=== PATIENT | male | born 1975 | race Caucasian/White ===

== ENCOUNTER 2016-08-27 05:06 | Emergency (ER) | payer MEDICAID ==
[~2016-08-27] VITALS: Ht 175.3 cm; Wt 81.6 kg
[~2016-08-27 05:06] MED LIST: BELLTAB15; METO-281; NOR10T
[2016-08-27 06:08] LABS: Basophils # (auto) 0 uL; Basophils % (auto) 0.6 % (0.0-2.0); DEFINITIVE VIEW TRANSMISSION; Eosinophils # (auto) 0.4 uL; Eosinophils % (auto) 4.9 % (0.0-7.0); Hematocrit 51.7 % (41.0-53.0); Hemoglobin 16.1 g/dL (13.5-17.5); Lymphocytes # (auto) 2.3 uL; Lymphocytes % (auto) 28.1 % (10.0-50.0); Mean Corpuscular Hemoglobin 28.9 pg (28.0-32.0); Mean Corpuscular Hgb Conc. 31.2 g/dL (32.0-36.0); Mean Corpuscular Volume 92.4 fL (80.0-100.0); Mean Platelet Volume 8.2 fL (7.4-10.4); Monocytes # (auto) 0.7 uL; Monocytes % (auto) 8.3 % (0.0-12.0); Neutrophils # (auto) 4.8 uL; Neutrophils % (auto) 58.1 % (37.0-80.0); Platelet Count (auto) 381 10^3/uL (140-450); Red Cell Distribution Width 14.8 % (11.6-16.0); White Blood Cell 8.2 10^3/uL (4.4-10.8)
[2016-08-27 06:38] LABS: Albumin 3.8 g/dL (3.4-5.0); Amylase 84 U/L (25-115); Anion Gap 6 (5-15); Blood Urea Nitrogen 11 mg/dL (7-18); Calcium 8.7 mg/dL (8.5-10.1); Carbon Dioxide 26 mmol/L (21-32); Chloride 109 mmol/L (98-107); Glucose 105 mg/dL (74-106); Magnesium 2.6 mg/dL (1.6-2.6); Potassium 4.2 mmol/L (3.5-5.1); Sodium 141 mmol/L (136-145)
[2016-08-27 06:40] LABS: Aspartate Aminotransferase 15 U/L (15-37); BUN/Creatinine Ratio 8.8; GFR African American 81 mL/min; GFR Non-African American 67 mL/min
[2016-08-27 06:46] LABS: Alkaline Phosphatase 75 U/L (45-117); Bilirubin, Total 0.5 mg/dL (0.2-1.0); Total Protein 7.5 g/dL (6.4-8.2)
[2016-08-27] MEDS ORDERED: ONDANSETRON HCL 4 MG/2 ML VIAL IV ONE (12:15)
[2016-08-27] MEDS ORDERED: HYDROmorphone HCL 2 MG/ML VL IV ONE (12:15)
[2016-08-27] MEDS ORDERED: PANTOPRAZOLE SODIUM 40 MG/10 ML VIAL IV ONE (12:15)
[2016-08-27] MEDS ORDERED: SODIUM CHLORIDE 0.9% 1,000 ML IV ONE (12:15)
[2016-08-27 15:26] VITALS: BP 123/77
== END 2016-08-27 15:44 | disposition home or self-care (01) ==
LOC: ER 05:08
DX: R10.9 Unspecified abdominal pain (principal); F12.10 Cannabis abuse, uncomplicated; K57.90 Diverticulosis of intestine, part unspecified, without perforation or abscess without bleeding; Z88.5 Allergy status to narcotic agent; Z88.6 Allergy status to analgesic agent
CPT/HCPCS: 36415; 74176; 80053; 80320; 82150; 83690; 83735; 84484; 85025; 96374; 96375; 99285; C9113; G0434; J1170; J2405; J7030

== ENCOUNTER 2016-12-03 13:49 | Emergency (ER) | payer MEDICAID ==
[~2016-12-03] VITALS: Ht 175.3 cm; Wt 133.8 kg
[2016-12-03 14:11] VITALS: BP 143/93
[2016-12-03 14:46] LABS: Basophils # (auto) 0 uL; Basophils % (auto) 0.2 % (0.0-2.0); Eosinophils # (auto) 0 uL; Hematocrit 52.5 % (41.0-53.0); Hemoglobin 17.3 g/dL (13.5-17.5); Lymphocytes # (auto) 0.6 uL; Mean Corpuscular Hemoglobin 30.5 pg (28.0-32.0); Mean Corpuscular Hgb Conc. 32.9 g/dL (32.0-36.0); Mean Corpuscular Volume 92.6 fL (80.0-100.0); Mean Platelet Volume 8.9 fL (7.4-10.4); Monocytes # (auto) 0.4 uL; Monocytes % (auto) 3.5 % (0.0-12.0); Neutrophils % (auto) 90.3 % (37.0-80.0); Platelet Count (auto) 341 10^3/uL (140-450); Red Cell Distribution Width 14.7 % (11.6-16.0)
[2016-12-03 15:07] LABS: Albumin 4.2 g/dL (3.4-5.0); BUN/Creatinine Ratio 10.7; Bilirubin, Total 0.6 mg/dL (0.2-1.0); Calcium 8.9 mg/dL (8.5-10.1); Potassium 4.4 mmol/L (3.5-5.1); Total Protein 8.3 g/dL (6.4-8.2)
== END 2016-12-03 20:20 | disposition left against medical advice (07) ==
LOC: EDBD 13:49 → ER 14:12
DX: R10.9 Unspecified abdominal pain (principal); R11.2 Nausea with vomiting, unspecified; Z53.21 Procedure and treatment not carried out due to patient leaving prior to being seen by health care provider
CPT/HCPCS: 36415; 80053; 85025

== ENCOUNTER 2017-04-12 07:09 | Emergency (ER) | payer MEDICAID ==
[~2017-04-12] VITALS: Ht 188 cm; Wt 90.7 kg
[2017-04-12 07:51] VITALS: BP 125/65
[2017-04-12] MEDS ORDERED: SODIUM CHLORIDE 0.9% 1,000 ML IV ONE ×2 (07:58)
[2017-04-12] MEDS ORDERED: KETOROLAC TROMETH 30 MG/ML 1ML VIAL IV ONE (08:00)
[2017-04-12 08:13] LABS: Basophils # (auto) 0.1 uL; Basophils % (auto) 0.6 % (0.0-2.0); Eosinophils # (auto) 0.4 uL; Eosinophils % (auto) 3.1 % (0.0-7.0); Hematocrit 48.7 % (41.0-53.0); Hemoglobin 16.5 g/dL (13.5-17.5); Lymphocytes # (auto) 1.5 uL; Mean Corpuscular Hemoglobin 31.4 pg (28.0-32.0); Mean Corpuscular Hgb Conc. 33.9 g/dL (32.0-36.0); Mean Corpuscular Volume 92.6 fL (80.0-100.0); Mean Platelet Volume 8.2 fL (6.9-10.8); Monocytes # (auto) 0.8 uL; Monocytes % (auto) 7.3 % (0.0-12.0); Neutrophils # (auto) 8.6 uL; Nucleated Red Blood Cells % 0.1 %; Platelet Count (auto) 319 10^3/uL (140-450); Red Cell Distribution Width 14.9 % (11.8-14.3); White Blood Cell 11.3 10^3/uL (4.4-10.8)
[2017-04-12 08:28] LABS: Albumin 4.1 g/dL (3.4-5.0); BUN/Creatinine Ratio 10.6; Bilirubin, Total 0.2 mg/dL (0.2-1.0); Calcium 9.4 mg/dL (8.5-10.1); Potassium 4.4 mmol/L (3.5-5.1); Total Protein 7.5 g/dL (6.4-8.2)
[2017-04-12] MEDS ORDERED: ACETAMINOPHEN 325 MG TAB PO ONE (09:30)
[2017-04-12 09:32] LABS: Urine Bilirubin Negative (Negative); Urine Blood Negative /uL (Negative); Urine Color Yellow (Yellow); Urine Glucose Normal (Normal); Urine Ketone Negative (Negative); Urine Nitrite Negative (Negative); Urine RBC 1 /hpf (0 - 3); Urine Urobilinogen Normal (Negative)
== END 2017-04-12 09:58 | disposition home or self-care (01) ==
LOC: ER 07:09 → EDUNIT# 07:09 → EDBD 07:09 → ER 09:58
DX: R10.32 Left lower quadrant pain (principal); F17.210 Nicotine dependence, cigarettes, uncomplicated; Z91.012 Allergy to eggs; Z88.6 Allergy status to analgesic agent; Z79.899 Other long term (current) drug therapy
CPT/HCPCS: 36415; 74176; 80053; 81001; 85025; 96361; 96374; 99285; J1885; J7030

== ENCOUNTER 2017-08-15 08:16 | Emergency (ER) | payer MEDICAID ==
[~2017-08-15] VITALS: Ht 175.3 cm; Wt 88.5 kg
[~2017-08-15 08:16] MED LIST changes: -BELLTAB15; +PHEN-913
[2017-08-15] MEDS ORDERED: PROMETHAZINE HCL 25 MG/ML 1ML IV PRN (08:45)
[2017-08-15] MEDS ORDERED: KETOROLAC TROMETH 30 MG/ML 1ML VIAL IV ONE (09:00)
[2017-08-15] MEDS ORDERED: SODIUM CHLORIDE 0.9% 1,000 ML IV ONE (09:00)
[2017-08-15 09:04] LABS: Basophils # (auto) 0.1 uL; Basophils % (auto) 0.8 % (0.0-2.0); Eosinophils # (auto) 0.3 uL; Eosinophils % (auto) 2.3 % (0.0-7.0); Hematocrit 52.5 % (41.0-53.0); Hemoglobin 17.5 g/dL (13.5-17.5); Lymphocytes # (auto) 1.5 uL; Lymphocytes % (auto) 11.1 % (10.0-50.0); Mean Corpuscular Hemoglobin 30.8 pg (28.0-32.0); Mean Corpuscular Hgb Conc. 33.3 g/dL (32.0-36.0); Mean Corpuscular Volume 92.7 fL (80.0-100.0); Monocytes % (auto) 7.9 % (0.0-12.0); Neutrophils # (auto) 10.2 uL; Neutrophils % (auto) 77.9 % (37.0-80.0); Nucleated Red Blood Cells % 0.1 %; Platelet Count (auto) 330 10^3/uL (140-450); Red Blood Cells 5.67 10^6/uL (4.5-5.90); Red Cell Distribution Width 14.2 % (11.8-14.3); White Blood Cell 13.1 10^3/uL (4.4-10.8)
[2017-08-15 09:14] LABS: INR 0.86 (0.9-1.15); Partial Thromboplastin Time 25.4 sec (22.64-33.71); Prothrombin Time 9.4 sec (9.37-12.3)
[2017-08-15 09:17] LABS: Amylase 76 U/L (25-115); Lipase 97 U/L (73-393)
[2017-08-15 09:25] LABS: Alanine Aminotransferase 20 U/L (16-61); Albumin 4.3 g/dL (3.4-5.0); Alkaline Phosphatase 86 U/L (45-117); Anion Gap 10 (5-15); Aspartate Aminotransferase 10 U/L (15-37); BUN/Creatinine Ratio 8.7; Bilirubin, Total 0.4 mg/dL (0.2-1.0); Blood Urea Nitrogen 11 mg/dL (7-18); Calcium 9.2 mg/dL (8.5-10.1); Carbon Dioxide 25 mmol/L (21-32); Chloride 107 mmol/L (98-107); GFR African American 80 mL/min; GFR Non-African American 66 mL/min; Glucose 113 mg/dL (74-106); Magnesium 2.9 mg/dL (1.6-2.6); Potassium 4.6 mmol/L (3.5-5.1); Sodium 142 mmol/L (136-145); Total Protein 8.2 g/dL (6.4-8.2)
[2017-08-15] MEDS ORDERED: diphenhdrAMINE HCL 50 MG/1 ML VL IV ONE (09:30)
[2017-08-15] MEDS ORDERED: IOHEXOL 300 MG/ML 100ML BOTTLE IJ ONE (10:11)
[2017-08-15 10:40] LABS: Urine Bacteria NONE SEEN /hpf (None Seen); Urine Blood Negative /uL (Negative); Urine Specific Gravity 1.011 (1.001-1.035); Urine WBC <1 /hpf (0 - 3)
[2017-08-15 11:08] LABS: Alcohol, Urine < 3.0 mg/dL (0-5); Amphetamine Screen, Urine NEGATIVE (NEGATIVE); Barbiturate Scree,Urine NEGATIVE (NEGATIVE); Benzodiazephine Screen, Urine NEGATIVE (NEGATIVE); Cannabinoid Screen, Urine POSITIVE (NEGATIVE); Cocaine Screen, Urine NEGATIVE (NEGATIVE); Opiate Scree,Urine NEGATIVE (NEGATIVE); Phencyclidine Screen, Urine NEGATIVE (NEGATIVE)
[2017-08-15 11:15] VITALS: BP 149/107
[2017-08-15] MEDS ORDERED: traMADol HCL 50 MG TAB PO ONE (11:30)
== END 2017-08-15 11:43 | disposition home or self-care (01) ==
LOC: ER 08:16 → EDBD 08:16 → ER 11:43
DX: R10.13 Epigastric pain (principal); R11.2 Nausea with vomiting, unspecified; R07.9 Chest pain, unspecified; G89.29 Other chronic pain; M54.9 Dorsalgia, unspecified; F17.210 Nicotine dependence, cigarettes, uncomplicated; Z87.442 Personal history of urinary calculi
CPT/HCPCS: 36415; 71045; 74177; 80053; 80307; 81001; 82150; 83690; 83735; 84484; 85025; 85610; 85730; 93005; 96361; 96374; 96375; 99285; J1200; J1885; J2550; J7030; Q9967

== ENCOUNTER 2021-12-27 19:03 | Emergency (ER) | payer MEDICAID ==
[~2021-12-27] VITALS: Ht 175.3 cm; Wt 108.9 kg
[~2021-12-27 19:03] MED LIST changes: +PHEN-839; -PHEN-913
[2021-12-27 19:36] LABS: Basophils # (auto) 0.1 10 ^3/uL (0-0.2); Lymphocytes # (auto) 1.4 10 ^3/uL (0.4-5.4); Monocytes # (auto) 1.1 10 ^3/uL (0-1.3); Red Cell Distribution Width 15.3 % (11.8-14.3)
[2021-12-27 19:38] LABS: Basophils % (auto) 0.4 % (0.0-2.0); Eosinophils # (auto) 0 10 ^3/uL (0-0.8); Eosinophils % (auto) 0.3 % (0.0-7.0); Hematocrit 54.3 % (41.0-53.0); Lymphocytes % (auto) 9.9 % (10.0-50.0); Mean Corpuscular Hemoglobin 30.1 pg (28.0-32.0); Mean Corpuscular Hgb Conc. 33.1 g/dL (32.0-36.0); Mean Corpuscular Volume 90.8 fL (80.0-100.0); Monocytes % (auto) 7.9 % (0.0-12.0); Neutrophils # (auto) 11.4 10 ^3/uL (1.6-8.6); Neutrophils % (auto) 81.5 % (37.0-80.0); Nucleated Red Blood Cells % 0.1 %; Red Blood Cells 5.98 10^6/uL (4.5-5.90)
[2021-12-27 20:10] LABS: BUN/Creatinine Ratio 6.1; Calcium 8.7 mg/dL (8.5-10.1); Potassium 4.2 mmol/L (3.5-5.1)
[2021-12-27 20:13] LABS: Bilirubin, Total 0.4 mg/dL (0.2-1.0); Total Protein 7.5 g/dL (6.4-8.2)
[2021-12-27] MEDS ORDERED: HYDROmorphone HCL 2 MG/ML VL/or syr IV ONE (20:45)
[2021-12-27] MEDS ORDERED: ONDANSETRON HCL 4 MG/2 ML VIAL ONE (20:51)
[2021-12-27] MEDS ORDERED: ONDANSETRON HCL 4 MG/2 ML VIAL IV ONE (21:00)
[2021-12-27] MEDS ORDERED: CEPH-509 PO (21:51)
[2021-12-27] MEDS ORDERED: HYDR-4798 PO (21:51)
[2021-12-27 22:33] VITALS: BP 149/94
== END 2021-12-27 23:30 | disposition home or self-care (01) ==
LOC: EDBD 19:03 → ER 19:03
DX: N20.0 Calculus of kidney (principal); F17.210 Nicotine dependence, cigarettes, uncomplicated; Z90.49 Acquired absence of other specified parts of digestive tract; Z79.899 Other long term (current) drug therapy; Z88.5 Allergy status to narcotic agent; Z88.8 Allergy status to other drugs, medicaments and biological substances; Z91.012 Allergy to eggs
CPT/HCPCS: 36415; 74176; 80053; 85025; 96374; 96375; 99284; J1170; J2405

== ENCOUNTER 2022-01-03 04:42 | Emergency (ER) | payer MEDICAID ==
[~2022-01-03] VITALS: Ht 170.2 cm; Wt 113.4 kg
[~2022-01-03 04:42] MED LIST changes: +CEPH-509 PO; +HYDR-4798 PO
[2022-01-03] MEDS ORDERED: ONDANSETRON HCL 4 MG/2 ML VIAL IV ONE (05:00)
[2022-01-03] MEDS ORDERED: HYDROmorphone HCL 2 MG/ML VL/or syr IM ONE (05:00)
[2022-01-03 06:15] LABS: Urine WBC None Seen /hpf (0 - 3)
[2022-01-03 06:36] LABS: Urine Bacteria NONE SEEN /hpf (None Seen); Urine Blood 1+ /uL (Negative); Urine Mucus FEW (None Seen); Urine Specific Gravity 1.035 (1.001-1.035)
[2022-01-03 08:08] LABS: Basophils # (auto) 0.1 10 ^3/uL (0-0.2); Basophils % (auto) 0.4 % (0.0-2.0); Eosinophils # (auto) 0.1 10 ^3/uL (0-0.8); Eosinophils % (auto) 0.8 % (0.0-7.0); Hematocrit 50.3 % (41.0-53.0); Hemoglobin 16.9 g/dL (13.5-17.5); Lymphocytes # (auto) 1.5 10 ^3/uL (0.4-5.4); Lymphocytes % (auto) 10.4 % (10.0-50.0); Mean Corpuscular Hemoglobin 30.7 pg (28.0-32.0); Mean Corpuscular Hgb Conc. 33.6 g/dL (32.0-36.0); Mean Corpuscular Volume 91.4 fL (80.0-100.0); Monocytes # (auto) 1.4 10 ^3/uL (0-1.3); Monocytes % (auto) 10.2 % (0.0-12.0); Neutrophils # (auto) 11.1 10 ^3/uL (1.6-8.6); Neutrophils % (auto) 78.2 % (37.0-80.0); Red Blood Cells 5.51 10^6/uL (4.5-5.90); Red Cell Distribution Width 15.6 % (11.8-14.3); White Blood Cell 14.2 10^3/uL (4.4-10.8)
[2022-01-03 08:11] LABS: Albumin 3.7 g/dL (3.4-5.0); Calcium 8.6 mg/dL (8.5-10.1); Potassium 3.9 mmol/L (3.5-5.1)
[2022-01-03 08:15] LABS: Bilirubin, Total 0.4 mg/dL (0.2-1.0); Total Protein 7.4 g/dL (6.4-8.2)
[2022-01-03] MEDS ORDERED: METOCLOPRAMIDE HCL 5MG/ml INJ 2ml VIAL IV ONE ×2 (09:15→14:15)
[2022-01-03] MEDS ORDERED: MEPERIDINE HCL (50 MG/ML) 1 ML VIAL IV ONE ×2 (09:15→14:15)
[2022-01-03] MEDS ORDERED: METO-281 PO (13:51)
[2022-01-03] MEDS ORDERED: TAMS0.4C36 PO (13:51)
[2022-01-03] MEDS ORDERED: HYDR-4902 PO (13:51)
[2022-01-03 16:08] VITALS: BP 138/76
== END 2022-01-03 16:10 | disposition home or self-care (01) ==
LOC: ER 04:42 → EDBD 04:42 → ER 16:10
DX: N20.1 Calculus of ureter (principal); F17.200 Nicotine dependence, unspecified, uncomplicated; F12.10 Cannabis abuse, uncomplicated; K21.9 Gastro-esophageal reflux disease without esophagitis; Z90.49 Acquired absence of other specified parts of digestive tract; Z87.442 Personal history of urinary calculi
CPT/HCPCS: 36415; 74176; 80053; 81001; 83690; 85025; 96372; 96374; 96375; 96376; 99284; J1170; J2175; J2405; J2765

== ENCOUNTER 2024-01-20 15:46 | Emergency (ER) | payer MEDICAID ==
[~2024-01-20] VITALS: Ht 172.7 cm; Wt 100.0 kg
[~2024-01-20 15:46] MED LIST changes: +HYDR-4902 PO; +METO-281 PO; +TAMS0.4C36 PO
[2024-01-20] MEDS: SODIUM CHLORIDE 0.9% 1,000 ML IV ONE ×2 (16:48→18:21)
[2024-01-20 16:54] VITALS: BP 122/64; RESP 18; TEMP 98.8; O2SAT 95
[2024-01-20] MEDS: HYDROcodone-ACET 5/325MG TAB PO ONE (17:02)
[2024-01-20 17:16] LABS: Basophils # (auto) 0.1 10 ^3/uL (0-0.2); Basophils % (auto) 0.9 % (0.0-2.0); Eosinophils # (auto) 0.1 10 ^3/uL (0-0.8); Eosinophils % (auto) 0.9 % (0.0-7.0); Hematocrit 48.5 % (41.0-53.0); Hemoglobin 16.6 g/dL (13.5-17.5); Lymphocytes # (auto) 0.8 10 ^3/uL (0.4-5.4); Lymphocytes % (auto) 7.4 % (10.0-50.0); Mean Corpuscular Hemoglobin 31.8 pg (28.0-32.0); Mean Corpuscular Hgb Conc. 34.1 g/dL (32.0-36.0); Mean Corpuscular Volume 93.3 fL (80.0-100.0); Monocytes # (auto) 0.7 10 ^3/uL (0-1.3); Monocytes % (auto) 6.8 % (0.0-12.0); Neutrophils # (auto) 9.1 10 ^3/uL (1.6-8.6); Red Cell Distribution Width 15.3 % (11.8-14.3); White Blood Cell 10.8 10^3/uL (4.4-10.8)
[2024-01-20 17:28] VITALS: PULSE 102
[2024-01-20 17:32] LABS: Alanine Aminotransferase 120 U/L (7-40); Albumin 4.4 g/dL (3.2-4.8); Alkaline Phosphatase 125 U/L (46-116); Anion Gap 9 (5-15); Aspartate Aminotransferase 49 U/L (13-40); BUN/Creatinine Ratio 7.2 (10.0-20.0); Blood Urea Nitrogen 7 mg/dL (9-23); Calcium 10.1 mg/dL (8.7-10.4); Carbon Dioxide 26 mmol/L (20-30); Chloride 104 mmol/L (98-107); Glucose 136 mg/dL (74-106); Lipase 28 U/L (12-53); Potassium 3.2 mmol/L (3.5-5.1); Sodium 139 mmol/L (136-145)
[2024-01-20 17:33] LABS: Bilirubin, Total 0.6 mg/dL (0.2-1.0); Total Protein 7.1 g/dL (5.7-8.2)
[2024-01-20 18:13] LABS: Lactic Acid w/Reflex 2.3 mmol/L (0.4-2.0)
[2024-01-20 19:35] LABS: Urine Bacteria None Seen /hpf (None Seen)
[2024-01-20 19:57] LABS: Urine Blood Negative /uL (Negative); Urine Clarity Clear (Clear); Urine Color Yellow (Yellow); Urine Mucus FEW (None Seen); Urine Protein, UAD TRACE (Negative); Urine Specific Gravity 1.023 (1.001-1.035); Urine Urobilinogen Normal (Negative); Urine WBC 2 /hpf (0 - 3)
[2024-01-20 20:05] LABS: Amphetamine Screen, Urine Neg (NEGATIVE); Barbiturate Scree,Urine Neg (NEGATIVE); Benzodiazephine Screen, Urine Neg (NEGATIVE); Cocaine Screen, Urine Neg (NEGATIVE)
[2024-01-20 20:06] LABS: Cannabinoid Screen, Urine Pos (NEGATIVE); Opiate Scree,Urine Neg (NEGATIVE); Phencyclidine Screen, Urine Neg (NEGATIVE)
[2024-01-20] MEDS ORDERED: METR-344 PO (20:34)
== END 2024-01-20 21:02 | disposition home or self-care (01) ==
LOC: ER 15:46 → EDUNIT# 15:46 → EDBD 15:46 → ER 21:02
DX: R10.84 Generalized abdominal pain (principal); J45.909 Unspecified asthma, uncomplicated; I10 Essential (primary) hypertension; K21.9 Gastro-esophageal reflux disease without esophagitis; F17.200 Nicotine dependence, unspecified, uncomplicated; F12.10 Cannabis abuse, uncomplicated; Z87.442 Personal history of urinary calculi; Z90.49 Acquired absence of other specified parts of digestive tract; Z79.899 Other long term (current) drug therapy
CPT/HCPCS: 36415; 74176; 80053; 80307; 81001; 83605; 83690; 84484; 85025; 93005; 96360; 96361; 99284; J7030

== ENCOUNTER 2024-07-21 02:05 | Inpatient (IN) | payer MEDICAID ==
[~2024-07-21] VITALS: Ht 175.3 cm; Wt 97.4 kg
[~2024-07-21 02:05] MED LIST changes: +METR-344 PO; -TAMS0.4C36 PO; +TAMS0.4C39 PO
--- NOTE | 2024-07-21 04:06 | ED.PDOC ---
General HPI Comments 49-year-old male brought in by private car complaining of right low back and flank pain. Patient has history of hypertension and kidney stones. Patient states he developed right low back pain radiating to the right flank, associated with nausea and vomiting over the past several hours. He denies hematuria or dy suria, but admits to minimal urine output, possibly due to nausea, vomiting and dehydration. Patient denies fever, diarrhea or constipation. He does report cough and congestion. Chief Complaint: Flank Pain Time Seen by MD: 04:06 Primary Care Provider: YAS Reviewed notes: Nurses Notes Allergies: Coded Allergies: Amoxicillin (Verified Allergy, Unknown, 07/21/24) Clavulanic Acid (Verified Allergy, Unknown, 07/21/24) Egg-derived Products (Verified Allergy, Unknown, 03/24/16) UNKNOWN REACTION Ketorolac Tromethamine (Verified Allergy, Unknown, 03/24/16) RASH Morphine (Verified Allergy, Unknown, 03/24/16) VOMITING Home Meds Active Scripts Metronidazole (Flagyl) 500 Mg Tab, 1 TAB PO TID for 7 Days, #21 TAB Prov:RUBINA HERNANDEZ DO 01/20/24 Tamsulosin Hcl (Tamsulosin Hcl) 0.4 Mg Cap, 1 CAP PO BID for 3 Days, #6 CAP 5 Refills Prov:ARABELLA BARBA MD 01/03/22 Metoclopramide Hcl (Reglan) 10 Mg Tab, 10 MG PO BID PRN for 5 Days, #10 TAB Prov:ARABELLA BARBA MD 01/03/22 Hydrocodone-Acetaminophen (Hydrocodone Bitartrate/AC 5-325 mg) 1 Tab Tab, 1 TAB PO TID for 5 Days, #15 TAB Prov:ARABELLA BARBA MD 01/03/22 Cephalexin (KEFLEX 500) 500 Mg Cap, 1 CAP PO TID for 5 Days, #15 CAP Prov:HAYDEN MACKENZIE DO 12/27/21 Hydrocodone-Acetaminophen (Hydrocodone Bitartrate/AC 10-325 mg) 1 Tab Tab, 1 TAB PO Q6HP PRN, #20 TAB Prov:HAYDEN MACKENZIE DO 12/27/21 Reported Medications Metoclopramide Hcl (Reglan) 10 Mg Tab 10/13/10 Hydrocodone-Acetaminophen ([place] 10/325MG) 1 Tab Tb 10/13/10 Belladonna Alkaloids-Phenobarb () Tab 10/13/10 Information Source: Patient Mode of Arrival: EMS Severity: Moderate Inability to void: Mild Timing: Hours Duration: Since onset Has not urinated for: Hours Prehospital treatment: None Onset: Spontaneous Symptoms: Inability to void History of: Kidney stone Location: (R) Flank associated signs and symptoms: Nausea, Vomiting, Flank Pain, Back Pain, Inability to Void Past Medical History PAST MEDICAL HISTORY: GERD, HTN, Kidney Stones Past Medical History (Other): Degenerative disc disease Surgical History: Appendectomy, Cholecystectomy Family History Family History: Reviewed,noncontributory to illness Social History Smoker: Cigar Alcohol: Denies ETOH Use Drugs: Marijuana Lives In: Home Constitutional: denies: chills, diaphoresis, fatigue, fever, malaise, sweats, weakness, others EENTM: denies: blurred vision, double vision, ear bleeding, ear discharge, ear drainage, ear pain, ear ringing, eye pain, eye redness, hearing loss, mouth pain, mouth swelling, nasal discharge, nose bleeding, nose congestion, nose pain, photophobia, tearing, throat pain, throat swelling, voice changes, others Respiratory: denies: cough, hemoptysis, orthopnea, SOB at rest, shortness of breath, SOB with excertion, stridor, wheezing, others Cardiovascular: denies: chest pain, dizzy spells, diaphoresis, Dyspnea on exertion, edema, irregular heart beat, left arm pain, lightheadedness, palpit ations, PND, syncope, others Gastrointestinal: reports: nausea, vomiting; denies: abdomen distended, abdominal pain, blood streaked bowels, constipated, diarrhea, dysphagia, difficulty swallowing, hematemesis, melena, poor appetite, poor fluid intake, rectal bleeding, rectal pain, others Genitourinary: reports: flank pain; denies: burning, dysuria, frequency, hematuria, incontinence, penile discharge, penile sore, pain, testicle pain, testicle swelling, urgency, others Neurological: denies: dizziness, fainting, headache, left sided numbness, left sided weakness, numbness, paresthesia, pre-existing deficit, right sided numbness, right sided weakness, seizure, speech problems, tingling, tremors, weakness, others Musculoskeletal: reports: back pain; denies: gout, joint pain, joint swelling, muscle pain, muscle stiffness, neck pain, others Integumetry: denies: bruises, change in color, change in hair/nails, dryness, laceration, lesions, lumps, rash, wounds, others Allergic/Immunocompromised: denies: Difficulty Healing, Frequent Infections, Hives, Itching, others Hematologic/Lymphatic: denies: anemia, blood clots, easy bleeding, easy bruising, swollen glands, others Endocrine: denies: excessive hunger, excessive sweating, excessive thirst, excessive urination, flushing, intolerance to cold, intolerance to heat, unexplained weight gain, unexplained weight loss, others Psychiatric: denies: anxiety, bipolar disorder, depression, hopeless, panic disorder, schizophrenia, sleepless, suicidal, others Physical Exam General Appearance: Moderate Distress HEENT: Other (Dry mucous membranes) Neck: Full Range of Motion, Normal Inspection Respiratory: Lungs Clear, No Accessory Muscle Use, No Respiratory Distress, Normal Breath Sounds Cardiovascular: No Edema, No JVD, Regular Rate/Rhythm Breast Exam: Deferred Gastrointestinal: Soft, Other (Right lower flank and low back tenderness to palpation) Genitalia: Deferred Pelvic: Deferred Rectal: Deferred Extremities: Normal inspection, Normal range of motion, Non-tender, No pedal edema Neurologic: Alert (Oriented x4), Normal Affect, Normal Mood, Other (Ambulatory without difficulty. No gross focal deficit.) Cerebellar Function: NOT DONE Reflexes: NOT DONE Skin: Dry, Pallor, Warm Lymphatic: NOT DONE Was a procedure done? Was a procedure done?: No Differential Diagnosis Kidney stone (Female): N/A Kidney stone (Male): DJD, Pyelonephritis, Strain, Urinary obstruction, Urolithiasis, Renal infarction, Urinary tract infection Urinary Problem (Male): Bladder Obstruction, Urethritis, Urinary Retention, Urolithiasis, UTI Other Differential Diagnosis Renal failure, viral syndrome, electrolyte imbalance, dehydration, among others X-Ray, Labs, Meds, VS Vital Signs Date Time Temp Pulse Resp B/P (MAP) Pulse Ox O2 Delivery O2 Flow Rate FiO2 07/21/24 06:44 108 18 137/87 (104) 96 07/21/24 06:44 108 18 137/87 07/21/24 05:42 110 18 112/86 07/21/24 05:27 110 18 112/86 (95) 96 07/21/24 05:27 Room Air* 0 21 07/21/24 02:10 99.4 131 20 131/93 (106) 97 Lab Test 07/21/24 05:14 07/21/24 05:04 07/21/24 02:14 Range/Units White Blood Count Pending Red Blood Count Pending Hemoglobin Pending Hematocrit Pending Mean Corpuscular Volume Pending Mean Corpuscular Hemoglobin Pending Mean Corpuscular Hemoglobin Concent Pending Red Cell Distribution Width Pending Platelet Count Pending Mean Platelet Volume Pending Neutrophils (%) (Auto) Pending Lymphocytes (%) (Auto) Pending Monocytes (%) (Auto) Pending Basophils (%) (Auto) Pending Neutrophils # (Auto) Pending Lymphocytes # (Auto) Pending Monocytes # (Auto) Pending Sodium Level Pending Potassium Level Pending Chloride Level Pending Carbon Dioxide Level Pending Anion Gap Pending Blood Urea Nitrogen Pending Creatinine Pending Glomerular Filtration Rate Calc Pending BUN/Creatinine Ratio Pending Serum Glucose Pending Calcium Level Pending Total Bilirubin Pending Aspartate Amino Transferase (AST) Pending Alanine Aminotransferase (ALT) Pending Alkaline Phosphatase Pending Total Protein Pending Albumin Pending Lactic Acid Level 1.5 0.4-2.0 mmol/L Urine Color Yellow Yellow Urine Clarity Clear Clear Urine pH 7.5 5.0-9.0 Urine Specific [place] 1.029 1.001-1.035 Urine Protein 1+ H Negative Urine Ketones 4+ H Negative Urine Blood Negative Negative /uL Urine Nitrite Negative Negative Urine Bilirubin Negative Negative Urine Urobilinogen 3 H Negative mg/dL Urine Leukocyte Esterase Negative Negative /uL Urine RBC 1 0 - 3 /hpf Urine WBC <1 0 - 3 /hpf Urine Squamous Epithelial Cells None seen <5 /hpf Urine Bacteria None seen None Seen /hpf Urine Mucus Few None Seen Urine Glucose Normal Normal mg/dL Current Medications Medications (Trade) Dose Ordered Sig/Jace Route Start Time Stop Time Status Last Admin Sodium Chloride 1,000 ml @ 1,000 mls/hr Q1H ONCE IV 07/21/24 04:15 07/21/24 05:14 DC 07/21/24 05:27 Morphine Sulfate 4 mg ONCE ONCE IV 07/21/24 04:15 07/21/24 04:16 DC 07/21/24 05:42 Ondansetron HCl (Zofran) 4 mg ONCE ONCE IV 07/21/24 04:15 07/21/24 04:16 DC 07/21/24 05:39 Famotidine (Pepcid Injection) 20 mg ONCE ONCE IV 07/21/24 04:15 07/21/24 04:16 DC 07/21/24 05:38 PROCEDURE(s): ABPL - CT AB PEL WO CON-NO ORAL OR IV REASON: R flank pain ORDER NUMBER(s): [id number], ACCESSION NUMBER(s): [id number] Exam: CT CT AB PEL WO CON-NO ORAL OR IV History: R flank pain Comparison Study: None available at time of dictation. Technique: Multidetector spiral CT of the abdomen and pelvis was performed from lung bases to pubic symphysis. Imaging was performed without intravenous contrast. Coronal and sagittal multiplanar reformats were obtained from the axial data set by the technologist. Radiation Dose : 1. Abdomen/Pelvis: CTDIvol 17.9 mGy, DLP 1092.8 mGy*cm. Findings: Evaluation of vasculature and solid organs is limited due to lack of intravenous contrast use. Lung Bases: Lung bases are clear. Visualized portions of the heart and pericardium are unremarkable. Liver: The liver is normal in size. No focal lesions. Gallbladder and Biliary Tree: The gallbladder is surgically absent. No intrahepatic or extrahepatic biliary ductal dilatation. Spleen: Unremarkable Pancreas: The pancreas is grossly unremarkable. Adrenal Glands: Unremarkable Kidneys: 4 mm nonobstructive calculus in the right kidney. Left kidney is unremarkable. No hydronephrosis. GI tract: The stomach is grossly normal in appearance. No evidence of small bowel wall thickening or abnormal dilatation to suggest bowel obstruction. Fatty submucosal deposition throughout the colon. Sigmoid diverticulosis without acute diverticulitis. Surgical material of the base of the cecum suggestive of prior appendectomy. No inflammatory changes in the right lower quadrant. Peritoneum/mesentery/retroperitoneum. No evidence of free intraperitoneal air. No ascites. No evidence of suspicious lymphadenopathy. Abdominal Wall: Unremarkable. Vasculature: The visualized abdominal aorta is normal in size and caliber. Evaluation of abdominal and pelvic vessels is limited due to lack of intravenous contrast. Urinary Bladder: Grossly unremarkable for degree of distention. Pelvic Organs: Unremarkable Musculoskeletal: No aggressive focal bony lesions, acute fractures or dislocatio n. Soft tissues: Fat containing right inguinal hernia. IMPRESSION: 1. No acute abdominal or pelvic findings. 2. Fatty submucosal deposition throughout the colon May suggest chronic inflammation. No findings to suggest acute colitis. 3. Sigmoid diverticulosis without acute diverticulitis. 4. Nonobstructive right intrarenal calculus. 5. Cholecystectomy. X-Ray, Labs, Meds, VS Comment 49-year-old male with a history of hypertension, DDD, kidney stones complaining of lower back and right flank pain, nausea and vomiting Vitals remarkable for heart rate 131, BP 131/93 Exam remarkable for right lower flank and low back tenderness to palpation Rhythm strip independently interpreted by me: Sinus tach, rate 122, no ectopy. CT abdomen and pelvis: IMPRESSION: 1. No acute abdominal or pelvic findings. 2. Fatty submucosal deposition throughout the colon May suggest chronic inflammation. No findings to suggest acute colitis. 3. Sigmoid diverticulosis without acute diverticulitis. 4. Nonobstructive right intrarenal calculus. 5. Cholecystectomy. CBC remarkable for WBC 11, hemoglobin 18.2, hematocrit 53.6, CMP pending UA unremarkable Influenza and COVID pending Patient treated with the following in the ED: 2 L 0.9 normal saline IV bolus, morphine 4 mg IV, Zofran 4 mg IV, Pepcid 20 mg IV. On re-evaluation, patient states pain has somewhat improved, he is not vomiting, but still have some nausea. Plan is to admit the patient for IV hydration, pain and emesis control. Time of 1ST Reevaluation: 03:59 Reevaluation 1ST: Unchanged Patient Education/Counseling: Diagnosis, Treatment Family Education/Counseling: No Family Present Departure 1 Departure Time of Disposition: 06:50 Impression: Primary Impression: Intractable abdominal pain Additional Impressions: Nausea and vomiting Qualified Codes: R11.2 - Nausea with vomiting, unspecified Dehydration Disposition: ADMITTED INPATIENT Admit to: Med Surg Condition: Fair Critical Care Note Critical Care Time?: No Stability Stability form required: No Heart Score Heart Score: Heart Score Response (Comments) Value History N/A 0 EKG N/A 0 Age N/A 0 Risk Factors N/A 0 Troponin N/A 0 Total 0 I personally scribed for JUICE WALTON MD ([facility]) on 07/21/24 at 04 :06. Electronically submitted by Vitaliy Morton ([facility]). I personally scribed for JUICE WALTON MD ([email or web address]) on 07/21/24 at 05:30. Electronically submitted by Vitaliy Morton ([facility]). JUICE WALTON MD Jul 21, 2024 04:06
[2024-07-21 04:17] LABS: Urine Bacteria None Seen /hpf (None Seen)
[2024-07-21 04:44] LABS: Urine Blood Negative /uL (Negative); Urine Clarity Clear (Clear); Urine Color Yellow (Yellow); Urine Mucus FEW (None Seen); Urine Protein, UAD 1+ (Negative); Urine Specific Gravity 1.029 (1.001-1.035); Urine Squamous Epithelial Cell None Seen /hpf (<5); Urine Urobilinogen 3 mg/dL (Negative); Urine WBC <1 /hpf (0 - 3); Urine pH 7.5 (5.0-9.0)
--- NOTE | 2024-07-21 05:11 | DVH ---
Exam: CT CT AB PEL WO CON-NO ORAL OR IV History: R flank pain Comparison Study: None available at time of dictation. Technique: Multidetector spiral CT of the abdomen and pelvis was performed from lung bases to pubic s ymphysis. Imaging was performed without intravenous contrast. Coronal and sagittal multiplanar refor mats were obtained from the axial data set by the technologist. Radiation Dose : 1. Abdomen/Pelvis: CTDIvol 17.9 mGy, DLP 1092.8 mGy*cm. Findings: Evaluation of vasculature and solid organs is limited due to lack of intravenous contrast use. Lung Bases: Lung bases are clear. Visualized portions of the heart and pericardium are unremarkable. Liver: The liver is normal in size. No focal lesions. Gallbladder and Biliary Tree: The gallbladder is surgically absent. No intrahepatic or extrahepatic biliary ductal dilatation. Spleen: Unremarkable Pancreas: The pancreas is grossly unremarkable. Adrenal Glands: Unremarkable Kidneys: 4 mm nonobstructive calculus in the right kidney. Left kidney is unremarkable. No hydroneph rosis. GI tract: The stomach is grossly normal in appearance. No evidence of small bowel wall thickening or abnormal dilatation to suggest bowel obstruction. Fatty submucosal deposition throughout the colon. Sigmoid diverticulosis without acute diverticulitis. Surgical material of the base of the cecum sugge stive of prior appendectomy. No inflammatory changes in the right lower quadrant. Peritoneum/mesentery/retroperitoneum. No evidence of free intraperitoneal air. No ascites. No evidenc e of suspicious lymphadenopathy. Abdominal Wall: Unremarkable. Vasculature: The visualized abdominal aorta is normal in size and caliber. Evaluation of abdominal a nd pelvic vessels is limited due to lack of intravenous contrast. Urinary Bladder: Grossly unremarkable for degree of distention. Pelvic Organs: Unremarkable Musculoskeletal: No aggressive focal bony lesions, acute fractures or dislocation. Soft tissues: Fat containing right inguinal hernia. IMPRESSION: 1. No acute abdominal or pelvic findings. 2. Fatty submucosal deposition throughout the colon May suggest chronic inflammation. No findings to suggest acute colitis. 3. Sigmoid diverticulosis without acute diverticulitis. 4. Nonobstructive right intrarenal calculus. 5. Cholecystectomy.
[2024-07-21] MEDS: SODIUM CHLORIDE 0.9% 1,000 ML IV ONE (05:27)
[2024-07-21] MEDS: KETOROLAC TROMETH 30 MG/ML 1ML VIAL IV ONE (05:34)
[2024-07-21] MEDS: FAMOTIDINE (10MG/ML) 2ML VL IV ONE (05:38)
[2024-07-21] MEDS: ONDANSETRON HCL 4 MG/2 ML VIAL IV ONE (05:39)
[2024-07-21] MEDS: MORPHINE SULFATE 4 MG/ML SYR/VIAL IV ONE (05:42)
[2024-07-21 06:37] LABS: Eosinophils # (auto) 0 10 ^3/uL (0-0.8); Hemoglobin 18.2 g/dL (13.5-17.5); Lymphocytes # (auto) 0.4 10 ^3/uL (0.4-5.4); Nucleated Red Blood Cells % 0.2 %
[2024-07-21 06:39] LABS: Basophils # (auto) 0.1 10 ^3/uL (0-0.2); Basophils % (auto) 0.6 % (0.0-2.0); Eosinophils % (auto) 0.2 % (0.0-7.0); Hematocrit 53.6 % (41.0-53.0); Lymphocytes % (auto) 3.9 % (10.0-50.0); Mean Corpuscular Hemoglobin 30.2 pg (28.0-32.0); Mean Corpuscular Hgb Conc. 33.9 g/dL (32.0-36.0); Mean Corpuscular Volume 89.1 fL (80.0-100.0); Monocytes # (auto) 1.5 10 ^3/uL (0-1.3); Neutrophils % (auto) 81.3 % (37.0-80.0); Platelet Count (auto) 354 10^3/uL (140-450); Red Blood Cells 6.01 10^6/uL (4.5-5.90); Red Cell Distribution Width 15.3 % (11.8-14.3)
[2024-07-21 06:45] LABS: Alanine Aminotransferase 13 U/L (7-40); Alkaline Phosphatase 85 U/L (46-116); Anion Gap 9 (5-15); Aspartate Aminotransferase 15 U/L (13-40); BUN/Creatinine Ratio 5.5 (10.0-20.0); Carbon Dioxide 25 mmol/L (20-31); Chloride 105 mmol/L (98-107); Sodium 139 mmol/L (136-145)
[2024-07-21 06:46] LABS: Bilirubin, Total 0.5 mg/dL (0.2-1.0)
[2024-07-21 06:54] LABS: Albumin 5.3 g/dL (3.2-4.8); Blood Urea Nitrogen 6 mg/dL (9-23); Calcium 10.5 mg/dL (8.7-10.4); Glucose 117 mg/dL (74-106); Total Protein 8.3 g/dL (5.7-8.2)
[2024-07-21 08:57] LABS: Rapid Influenza A Negative (Negative); Rapid Influenza B Negative (Negative)
[2024-07-21 09:02] LABS: COVID19 ANTIGEN SOFIA FIA NEGATIVE (NEGATIVE)
[2024-07-21] MEDS ORDERED: HYDROcodone-ACET 5/325MG TAB PO PRN (11:30)
[2024-07-21] MEDS ORDERED: VANCOMYCIN PER PHARMACY 0 MG IV SCH (11:30)
--- NOTE | 2024-07-21 11:42 | DVHHP2 ---
History of Present Illness Reason for Visit: Flank pain History of Present Illness Christopher Peck is a 49-year-old male with past medical history of hypertension, IBS, diverticulitis, kidney stones, GERD, degenerative disc disease, cholecystectomy, and appendectomy who presents to the ED for right flank pain, low back pain, nausea, diarrhea, cough and congestion x2 days. Patient reports that it started yesterday around 6:30 a.m. he tried to go to [facility] get some rest with no relief. Patient states that the right flank pain is sharp, constant, 10/10 and pain. Patient reports that he also took [place] with no relief. Patient states that movement makes it worse. Patient also states that there was no blood in his stool. Patient reports that he is able to take morphine for pain but just needs to be pushed slow because of the nausea it gives him. Patient reports that he smokes cigars, cigarettes, and uses marijuana but does not drink. Patient denies any recent sick contacts, recent travels, and recent ingestion of spoiled food. Patient denies chest pain, shortness of breath, abdominal pain, vomiting, lightheadedness, dizziness, and headaches. Patient also reports that he is compliant with all his medications. Cardiovascular: HTN GI: GERD, Irritable bowel disease Past Medical History Diverticulitis Kidney stones Degenerative disc disease Past Surgical History: Appendectomy, Cholecystectomy Family History: None Smoke: <1 pack per day ALCOHOL: none Drugs: Marijuana Lives: with Family Domestic Violence: Neg Review of Systems Constitutional: No: Fever, Chills, Sweats, Weakness, Malaise, Other Eyes: No: Pain, Vision change, Conjunctivae inflammation, Eyelid inflammation, Other, Redness ENT: No: Ear pain, Ear discharge, Nose pain, Nose discharge, Nose congestion, Mouth pain, Mouth swelling, Throat pain, Throat swelling, Other Respiratory: Cough, Other (Congestion); No: Dry, Shortness of breath, SOB with excertion, Wheezing, Hemoptysis, Pleuritic Pain, Sputum, Wheezing Cardiovascular: No: Chest Pain, Palpitations, Orthopnea, Paroxysmal Noc. Dyspnea, Edema, Lt Headedness, Other Gastrointestinal: Nausea, Diarrhea, Other (Flank pain); No: Vomiting, Abdominal Pain, Constipation, Melena, Hematochezia Genitourinary: No Dysuria, No Frequency, No Incontinence, No Hematuria, No Rete ntion, No Other Musculoskeletal: back pain; No: other, neck pain, shoulder pain, arm pain, hand pain, leg pain, foot pain Skin: No: Rash, Lesions, Jaundice, Bruising, Other Neurological: No: Weakness, Numbness, Incoordination, Change in speech, Confusion, Seizures, Other Allergies: Coded Allergies: Amoxicillin (Verified Allergy, Unknown, 07/21/24) Clavulanic Acid (Verified Allergy, Unknown, 07/21/24) Egg-derived Products (Verified Allergy, Unknown, 07/22/24) UNKNOWN REACTION Ketorolac Tromethamine (Verified Allergy, Unknown, 03/24/16) RASH Exam Vital Signs Vital Signs Date Time Temp Pulse Resp B/P (MAP) Pulse Ox O2 Delivery O2 Flow Rate FiO2 07/21/24 10:54 119 19 95 Room Air 07/21/24 10:54 98.8 126/84 (98) 98.8 07/21/24 05:27 0 21 General Appearance: Alert, Oriented X3, Cooperative, No acute distress HEENT: Atraumatic, PERRLA, EOMI, Mucous membr. moist/pink Respiratory: Clear to auscultation, Normal air movement Cardiovascular: Regular rate, Normal S1, Normal S2, No murmurs Abdominal: Soft, No hepatospenomegaly, No masses Extremities: No clubbing, No cyanosis, No edema, Normal pulses, No tenderness/swelling Skin: No rashes, No breakdown, No significant lesion Neuro: Normal gait, Normal speech, Strength at 5/5 X4 ext, Normal tone Psych/Mental Status: Mental status NL, Mood NL Labs/Xrays Labs Test 07/21/24 08:00 07/21/24 05:14 07/21/24 05:04 07/21/24 02:14 Range/Units Influenza Type A Antigen Negative Negative Influenza Type B Antigen Negative Negative SARS-CoV-2 Antigen (Rapid) Negative NEGATIVE White Blood Count 11.0 H 4.4-10.8 10^3/uL Red Blood Count 6.01 H 4.5-5.90 10^6/uL Hemoglobin 18.2 H 13.5-17.5 g/dL Hematocrit 53.6 H 41.0-53.0 % Mean Corpuscular Volume 89.1 80.0-100.0 fL Mean Corpuscular Hemoglobin 30.2 28.0-32.0 pg Mean Corpuscular Hemoglobin Concent 33.9 32.0-36.0 g/dL Red Cell Distribution Width 15.3 H 11.8-14.3 % Platelet Count 354 140-450 10^3/uL Mean Platelet Volume 9.0 6.9-10.8 fL Neutrophils (%) (Auto) 81.3 H 37.0-80.0 % Lymphocytes (%) (Auto) 3.9 L 10.0-50.0 % Monocytes (%) (Auto) 14.0 H 0.0-12.0 % Eosinophils (%) (Auto) 0.2 0.0-7.0 % Basophils (%) (Auto) 0.6 0.0-2.0 % Neutrophils # (Auto) 9.0 H 1.6-8.6 10 ^3/uL Lymphocytes # (Auto) 0.4 0.4-5.4 10 ^3/uL Monocytes # (Auto) 1.5 H 0-1.3 10 ^3/uL Eosinophils # (Auto) 0 0-0.8 10 ^3/uL Basophils # (Auto) 0.1 0-0.2 10 ^3/uL Nucleated Red Blood Cells 0.2 % Sodium Level 139 136-145 mmol/L Potassium Level 4.0 3.5-5.1 mmol/L Chloride Level 105 98-107 mmol/L Carbon Dioxide Level 25 20-31 mmol/L Anion Gap 9 5-15 Blood Urea Nitrogen 6 L 9-23 mg/dL Creatinine 1.09 0.700-1.30 mg/dL Glomerular Filtration Rate Calc 83 >90 mL/min BUN/Creatinine Ratio 5.5 L 10.0-20.0 Serum Glucose 117 H 74-106 mg/dL Calcium Level 10.5 H 8.7-10.4 mg/dL Total Bilirubin 0.5 0.2-1.0 mg/dL Aspartate Amino Transferase (AST) 15 13-40 U/L Alanine Aminotransferase (ALT) 13 7-40 U/L Alkaline Phosphatase 85 46-116 U/L Total Protein 8.3 H 5.7-8.2 g/dL Albumin 5.3 H 3.2-4.8 g/dL Lactic Acid Level 1.5 0.4-2.0 mmol/L Urine Color Yellow Yellow Urine Clarity Clear Clear Urine pH 7.5 5.0-9.0 Urine Specific [place] 1.029 1.001-1.035 Urine Protein 1+ H Negative Urine Ketones 4+ H Negative Urine Blood Negative Negative /uL Urine Nitrite Negative Negative Urine Bilirubin Negative Negative Urine Urobilinogen 3 H Negative mg/dL Urine Leukocyte Esterase Negative Negative /uL Urine RBC 1 0 - 3 /hpf Urine WBC <1 0 - 3 /hpf Urine Squamous Epithelial Cells None seen <5 /hpf Urine Bacteria None seen None Seen /hpf Urine Mucus Few None Seen Urine Glucose Normal Normal mg/dL Exam: CT CT AB PEL WO CON-NO ORAL OR IV History: R flank pain Comparison Study: None available at time of dictation. Technique: Multidetector spiral CT of the abdomen and pelvis was performed from lung bases to pubic symphysis. Imaging was performed without intravenous contrast. Coronal and sagittal multiplanar reformats were obtained from the axial data set by the technologist. Radiation Dose : 1. Abdomen/Pelvis: CTDIvol 17.9 mGy, DLP 1092.8 mGy*cm. Findings: Evaluation of vasculature and solid organs is limited due to lack of intravenous contrast use. Lung Bases: Lung bases are clear. Visualized portions of the heart and pericardium are unremarkable. Liver: The liver is normal in size. No focal lesions. Gallbladder and Biliary Tree: The gallbladder is surgically absent. No intrahepatic or extrahepatic biliary ductal dilatation. Spleen: Unremarkable Pancreas: The pancreas is grossly unremarkable. Adrenal Glands: Unremarkable Kidneys: 4 mm nonobstructive calculus in the right kidney. Left kidney is unremarkable. No hydronephrosis. GI tract: The stomach is grossly normal in appearance. No evidence of small bowel wall thickening or abnormal dilatation to suggest bowel obstruction. Fatty submucosal deposition throughout the colon. Sigmoid diverticulosis without acute diverticulitis. Surgical material of the base of the cecum suggestive of prior appendectomy. No inflammatory changes in the right lower quadrant. Peritoneum/mesentery/retroperitoneum. No evidence of free intraperitoneal air. No ascites. No evidence of suspicious lymphadenopathy. Abdominal Wall: Unremarkable. Vasculature: The visualized abdominal aorta is normal in size and caliber. Evaluation of abdominal and pelvic vessels is limited due to lack of intravenous contrast. Urinary Bladder: Grossly unremarkable for degree of distention. Pelvic Organs: Unremarkable Musculoskeletal: No aggressive focal bony lesions, acute fractures or dislocation. Soft tissues: Fat containing right inguinal hernia. IMPRESSION: 1. No acute abdominal or pelvic findings. 2. Fatty submucosal deposition throughout the colon May suggest chronic inflammation. No findings to suggest acute colitis. 3. Sigmoid diverticulosis without acute diverticulitis. 4. Nonobstructive right intrarenal calculus. 5. Cholecystectomy. Assessment/Plan Assessment/Plan Assessment/Plan: Intractable flank pain Leukocytosis Fatty submucosal deposition throughout the colon May suggest chronic inflammation. No findings to suggest acute colitis Sigmoid diverticulosis without acute diverticulitis Ketonuria Proteinuria COVID test negative Flu test negative Pepcid given ER Antiemetics Pain management NS given ER Lactic acid and negative Blood cultures UA CT abdomen and pelvis noted IV antibiotics - vancomycin and meropenem, patient allergic to penicillins Labs A.m. labs Chronic hypertension Continue home medications Chronic IBS History of diverticulitis History of kidney stones History of GERD Continue home medications Follow up outpatient with PCP History of degenerative disc disease Follow up outpatient with PCP Nonobstructive right intrarenal calculus. Follow up outpatient with PCP FEN/PPX diet hl DVT prophylaxis not indicated patient ambulating PUD prophylaxis -Protonix Admit to med surg Home medications reconciled Discussed plan of care with patient, and nurse Plan discussed with: Patient My Orders Orders - ANDRES SAMUEL Procedure Category Date Status Time Admit ADMIT 07/21/24 Transmitted 11:30 Allergies IRINA 07/21/24 Transmitted 11:30 Code Status CODE 07/21/24 Transmitted 11:30 2 Gm Sodium Diet DIET 07/21/24 Transmitted Lunch Hydrocodone-Acet PHA 07/21/24 Transmitted 5/325mg Tab (Cleves 11:30 Ondansetron Hcl PHA 07/21/24 Transmitted (Zofran) 11:30 Complete Blood Count LAB 07/22/24 Verified 04:00 Comprehensive LAB 07/22/24 Verified Metabolic Panel 04:00 Acetaminophen Tablet PHA 07/21/24 Transmitted (Tylenol Tablet) 11:30 Morphine Sulfate PHA 07/21/24 Transmitted Injection 11:30 Vancomycin Per PHA 07/21/24 Transmitted Pharmacy 11:30 Meropenem 1gm Ivpb X PHA 07/21/24 Transmitted ONE 11:30 Meropenem 1gm PHA 07/21/24 Transmitted Q8h(Gfr>50) 14:00 Date of Service: Jul 21, 2024 Billing Provider: ANDRES SAMUEL Common Visit Codes: 36239-[id number] INP/OBS CARE (HIGH) ANDRES SAMUEL [facility] Jul 21, 2024 11:42
[2024-07-21 11:52] VITALS: BP 128/70; PULSE 111; RESP 18; TEMP 99.9; O2SAT 92
[2024-07-21] MEDS: MEROPENEM 1GM IVPB 50 ML IV ONE (12:10)
[2024-07-21] MEDS: MORPHINE SULFATE INJ 2 MG/ml SYRG IV PRN (12:11)
[2024-07-21] MEDS: VANCOMYCIN 1GM/250ML KIT 250 ML IV SCH (12:15)
[2024-07-21] MEDS ORDERED: CYCL1POW25 XX (12:35)
[2024-07-21] MEDS ORDERED: HYDR12.59 PO (13:26)
[2024-07-21] MEDS ORDERED: LOSA-534 PO (13:27)
[2024-07-21] MEDS ORDERED: CYCL-839 PO (13:28)
[2024-07-21 17:00] VITALS: BP 126/78; PULSE 111; RESP 20; TEMP 100.5; O2SAT 95
[2024-07-21] MEDS: MEROPENEM 1GM IVPB 50 ML IV SCH (17:44)
[2024-07-21] MEDS: ACETAMINOPHEN 325 MG TAB PO PRN (17:49)
[2024-07-21] MEDS: VANCOMYCIN 750MG VIAL 750 MG in D5W 5% 100 ML IV SCH (17:50)
[2024-07-21 20:00] VITALS: PULSE 104; RESP 18; O2SAT 92
[2024-07-21 21:00] VITALS: BP 130/72; PULSE 104; RESP 16; TEMP 99; O2SAT 90
[2024-07-22] VITALS (7 sets, daily range): BP systolic 106–134; BP diastolic 66–85; PULSE 95–107; RESP 16–18; TEMP 98.1–100.1; O2SAT 90–96
[2024-07-22 08:38] LABS: Basophils # (auto) 0.1 10 ^3/uL (0-0.2); Basophils % (auto) 0.9 % (0.0-2.0); Eosinophils # (auto) 0 10 ^3/uL (0-0.8); Eosinophils % (auto) 0.2 % (0.0-7.0); Hematocrit 50.8 % (41.0-53.0); Hemoglobin 16.9 g/dL (13.5-17.5); Lymphocytes # (auto) 0.9 10 ^3/uL (0.4-5.4); Mean Corpuscular Hemoglobin 30.3 pg (28.0-32.0); Mean Corpuscular Hgb Conc. 33.3 g/dL (32.0-36.0); Mean Corpuscular Volume 90.8 fL (80.0-100.0); Monocytes # (auto) 1.4 10 ^3/uL (0-1.3); Monocytes % (auto) 16.1 % (0.0-12.0); Neutrophils # (auto) 6.2 10 ^3/uL (1.6-8.6); Neutrophils % (auto) 72.8 % (37.0-80.0); Nucleated Red Blood Cells % 0.2 %; Platelet Count (auto) 274 10^3/uL (140-450); Red Cell Distribution Width 15.5 % (11.8-14.3); White Blood Cell 8.6 10^3/uL (4.4-10.8)
[2024-07-22] MEDS: ONDANSETRON HCL 4 MG/2 ML VIAL IV PRN (09:57)
[2024-07-22 10:26] LABS: Albumin 4.3 g/dL (3.2-4.8); Anion Gap 5 (5-15); BUN/Creatinine Ratio 6.7 (10.0-20.0); Calcium 9.1 mg/dL (8.7-10.4); Carbon Dioxide 25 mmol/L (20-31); Chloride 106 mmol/L (98-107); Glucose 87 mg/dL (74-106); Potassium 4.2 mmol/L (3.5-5.1); Sodium 136 mmol/L (136-145); Total Protein 6.9 g/dL (5.7-8.2)
[2024-07-22 10:28] LABS: Alanine Aminotransferase 114 U/L (7-40); Alkaline Phosphatase 143 U/L (46-116); Aspartate Aminotransferase 138 U/L (13-40); Bilirubin, Total 0.3 mg/dL (0.2-1.0); Blood Urea Nitrogen 6 mg/dL (9-23)
[2024-07-22] MEDS ORDERED: CYCLOBENZAPRINE HCL 10 MG TAB PO PRN (16:15)
--- NOTE | 2024-07-22 16:31 | DVH ---
Procedure: US LIVER 07/22/2024 04:06 PM Indication: elevated LFTs Comparison: None Technique: Grayscale and color images of the right upper quadrant were obtained. FINDINGS: ASCITES: None. LIVER: Liver measures 17.1 cm in craniocaudal. Liver parenchyma is homogeneous in echotexture. No foc al lesion is identified. No intrahepatic ductal dilatation. Normal directional flow is seen in the p ortal vein. GALLBLADDER: Gallbladder is surgically absent. COMMON BILE DUCT: 0.4 cm in caliber. PANCREAS: Visualized portions are unremarkable. RIGHT KIDNEY: Normal in size , 10.6 cm in length without hydronephrosis. No focal lesions identified. AORTA, IVC: Visualized portions are unremarkable. OTHER: None. IMPRESSION: 1. No sonographic evidence for acute abnormality in the right upper quadrant.
--- NOTE | 2024-07-22 16:43 | DVHPN2 ---
Progress Note - Dictate Date Seen: Jul 22, 2024 Medical Necessity Reason Pt with a Central, PICC or Fol: No Subjective Patient's chart is reviewed seen and evaluated by me today. Admitted here with abdominal pain however at present he denies any. He is tolerating diet. Patient's sees outpatient pain management. vital signs Vital Sign Date Time Temp Pulse Resp B/P (MAP) Pulse Ox O2 Delivery O2 Flow Rate FiO2 07/22/24 15:18 100 17 111/76 07/22/24 13:00 98.1 96 98.1 07/22/24 08:30 Room Air* 0 21 Total Intake and Output 07/21/24 07/21/24 07/22/24 15:00 23:00 07:00 Intake Total 300 ml 1150 ml 400 ml Balance 300 ml 1150 ml 400 ml medications Current Medications Medications Dose Ordered Sig/Jace Route Start Time Stop Time Status Last Admin Dose Admin Acetaminophen/ Hydrocodone Bitart 1 tab Q4HP PRN PO 07/21/24 11:30 Ondansetron HCl 4 mg Q4HP PRN IV 07/21/24 11:30 07/22/24 09:57 4 MG Acetaminophen 650 mg Q6HP PRN PO 07/21/24 11:30 07/22/24 06:23 650 MG Morphine Sulfate 2 mg Q4HPRN PRN IV 07/21/24 11:30 07/22/24 15:18 2 MG Vancomycin HCl 0 ml @ 0 mls/hr UD IV 07/21/24 11:30 Meropenem 50 ml @ 17 mls/hr Q8H IV 07/21/24 18:00 07/22/24 12:41 17 MLS/HR Vancomycin HCl 100 ml @ 100 mls/hr Q12H IV 07/22/24 22:00 Cyclobenzaprine HCl 10 mg Q8HPRN PRN PO 07/22/24 16:15 objective Alert awake oriented x3. HEENT neck supple no JVD. Heart regular rate and rhythm S1-S2. Lungs fair air movement without rales wheezes. Abdomen obese soft nontender nondistended positive bowel sounds. Extremities no edema positive pulses. laboratory and microbiology Laboratory Tests 07/22/24 07:04 Test 07/22/24 07:04 Range/Units Serum Glucose 87 74-106 mg/dL Assessment/Plan His LFTs are mildly elevated today. Yesterday they were normal. We will DC Elton and Tylenol. I will check a hepatitis panel. Continue his diet. Add Flexeril which he takes at home for his chronic pain. Otherwise continue rest of supportive care and treatment. Ultrasound of the liver is ordered as well. Further clinical management per clinical course. Discussed with the patient's nurse regarding care plan at bedside. Problems(with codes): (1) IBS (irritable bowel syndrome) (2) Chronic back pain greater than 3 months duration (3) Nonspecific abdominal pain (4) Kidney stone Plan discussed with: Patient, Other Date of Service: Jul 22, 2024 Billing Provider: KAHLIL MCCLURE MD Common Visit Codes: [id number] INP/OBS CARE(MOD) KAHLIL MCCLURE MD Jul 22, 2024 16:43
[2024-07-22] MEDS: CYCLOBENZAPRINE HCL 10 MG TAB PO ONE (17:08)
[2024-07-22] MEDS ORDERED: VANCOMYCIN 750MG KIT 100 ML IV SCH (22:00)
[2024-07-23] VITALS (8 sets, daily range): BP systolic 105–136; BP diastolic 71–104; PULSE 89–117; RESP 16–20; TEMP 98.9–99.7; O2SAT 91–93
[2024-07-23 07:18] LABS: Basophils # (auto) 0 10 ^3/uL (0-0.2); Basophils % (auto) 0.5 % (0.0-2.0); Eosinophils # (auto) 0 10 ^3/uL (0-0.8); Eosinophils % (auto) 0.1 % (0.0-7.0); Hematocrit 51.2 % (41.0-53.0); Hemoglobin 17.2 g/dL (13.5-17.5); Lymphocytes # (auto) 1.1 10 ^3/uL (0.4-5.4); Lymphocytes % (auto) 18.2 % (10.0-50.0); Mean Corpuscular Hemoglobin 29.8 pg (28.0-32.0); Mean Corpuscular Hgb Conc. 33.5 g/dL (32.0-36.0); Mean Corpuscular Volume 88.8 fL (80.0-100.0); Monocytes # (auto) 0.9 10 ^3/uL (0-1.3); Monocytes % (auto) 14.7 % (0.0-12.0); Neutrophils # (auto) 4.2 10 ^3/uL (1.6-8.6); Neutrophils % (auto) 66.5 % (37.0-80.0); Nucleated Red Blood Cells % 0.1 %; Platelet Count (auto) 251 10^3/uL (140-450); Red Blood Cells 5.76 10^6/uL (4.5-5.90); Red Cell Distribution Width 15.3 % (11.8-14.3); White Blood Cell 6.3 10^3/uL (4.4-10.8)
[2024-07-23 07:36] LABS: Anion Gap 8 (5-15); Bilirubin, Total 0.3 mg/dL (0.2-1.0); Calcium 9.2 mg/dL (8.7-10.4); Carbon Dioxide 27 mmol/L (20-31); Chloride 104 mmol/L (98-107); Glucose 94 mg/dL (74-106); Sodium 139 mmol/L (136-145); Total Protein 6.6 g/dL (5.7-8.2)
[2024-07-23 07:46] LABS: Alanine Aminotransferase 185 U/L (7-40); Alkaline Phosphatase 204 U/L (46-116); Aspartate Aminotransferase 233 U/L (13-40); Potassium 3.5 mmol/L (3.5-5.1)
[2024-07-23 07:50] LABS: BUN/Creatinine Ratio 7.1 (10.0-20.0)
[2024-07-23 07:53] LABS: Blood Urea Nitrogen 6 mg/dL (9-23)
--- NOTE | 2024-07-23 13:59 | DVHINCON2 ---
Date of service: Jul 23, [address] Mejia Reason for Consultation Abdominal pain in the right upper quadrant as well as right flank History of Present Illness This 49-year-old male with a history of hypertension GERD degenerative joint disease in the back presented with complaints of abdominal pain in the right upper quadrant as well as right flank as well as low back pain with associated nausea some diarrhea. The pain was very severe and hence he came to the emergency room and from there admitted A CT scan which was done showed there was evidence of possible small kidney stone in the right kidney patient has no hematuria and the urinalysis showed no blood Patient has status post cholecystectomy He denies any drinking but she uses marijuana and smokes cigarettes. He takes chronically [place] and muscle relaxants at home for his back pain in addition to marijuana His liver enzymes were normal outpatient but in the last to 48 hours it is still slowly gone up bilirubin is normal but other enzymes are all high Hepatitis panel is pending Because of this the reason for the GI Past Medical History Hypertension GERD possible IBS kidney stone Past Surgical History Gallbladder surgery and appendectomy Had colonoscopy and endoscopy about more than 20 years Family History: Family history: Cardiovascular disease G8 MOTHER Family history: Diabetes mellitus G8 MOTHER Family History Noncontributory Social History Smokes marijuana and no drinks Smokes cigarettes also Allergies: Coded Allergies: Amoxicillin (Verified Allergy, Unknown, 07/21/24) Clavulanic Acid (Verified Allergy, Unknown, 07/21/24) Egg-derived Products (Verified Allergy, Unknown, 07/22/24) UNKNOWN REACTION Ketorolac Tromethamine (Verified Allergy, Unknown, 03/24/16) RASH Home Meds Active Scripts Metronidazole (Flagyl) 500 Mg Tab, 1 TAB PO TID for 7 Days, #21 TAB Prov:RUBINA HERNANDEZ DO 01/20/24 Tamsulosin Hcl (Tamsulosin Hcl) 0.4 Mg Cap, 1 CAP PO BID for 3 Days, #6 CAP 5 Refills Prov:ARABELLA BARBA MD 01/03/22 Metoclopramide Hcl (Reglan) 10 Mg Tab, 10 MG PO BID PRN for 5 Days, #10 TAB Prov:ARABELLA BARBA MD 01/03/22 Hydrocodone-Acetaminophen (Hydrocodone Bitartrate/AC 5-325 mg) 1 Tab Tab, 1 TAB PO TID for 5 Days, #15 TAB Prov:ARABELLA BARBA MD 01/03/22 Cephalexin (KEFLEX 500) 500 Mg Cap, 1 CAP PO TID for 5 Days, #15 CAP Prov:HAYDEN MACKENZIE DO 12/27/21 Hydrocodone-Acetaminophen (Hydrocodone Bitartrate/AC 10-325 mg) 1 Tab Tab, 1 TAB PO Q6HP PRN, #20 TAB Prov:HAYDEN MACKENZIE Wen DO 12/27/21 Reported Medications Cyclobenzaprine Hcl (Cyclobenzaprine Hcl) 10 Mg Tab, 10 MG PO DAILY for 30 Days, MG 07/21/24 Losartan Potassium (Losartan Potassium) 50 Mg Tab, 50 MG PO DAILY for 30 Days, MG 07/21/24 Hydrochlorothiazide (Hydrochlorothiazide) 12.5 Mg Cap, 1 CAP PO DAILY, #30 CAP 5 Refills 07/21/24 Hydrocodone-Acetaminophen ([place] 10/325MG) 1 Tab Tb 10/13/10 Belladonna Alkaloids-Phenobarb () Tab 10/13/10 Discontinued Reported Medications Cyclobenzaprine Base (Cyclobenzaprine HCl) 1 Pow Pow, 10 MG XX DAILY, POW 07/21/24 Metoclopramide Hcl (Reglan) 10 Mg Tab 10/13/10 Current Medications Current Medications Medications (Trade) Dose Ordered Sig/Jace Route PRN Reason Start Time Stop Time Status Last Admin Vancomycin HCl 100 ml @ 100 mls/hr Q12H IV 07/22/24 22:00 07/22/24 16:41 DC Cyclobenzaprine HCl (Flexeril Tablet) 10 mg Q8HPRN PRN PO FOR MUSCLE SPASM 07/22/24 16:15 Review of Systems Noncontributory Vital Signs Vital Signs Date Time Temp Pulse Resp B/P (MAP) Pulse Ox O2 Delivery O2 Flow Rate FiO2 07/23/24 12:49 99.0 103 18 125/73 (90) 91 99.0 07/23/24 08:00 Room Air* 0 21 Physical Exam Of patient is in no acute distress Vital signs stable HEENT examination no pallor no icterus Neck is supple no lymphadenopathy Chest bilaterally symmetrical lungs are clear Abdomen soft mild tenderness in the right upper quadrant and the right flank no rigidity no guarding bowel sounds normal Extremities no edema no varicosities no clubbing Labs/Diagnostic Data Labs Test 07/23/24 06:44 07/22/24 07:15 07/22/24 07:04 07/21/24 08:00 Range/Units White Blood Count 6.3 # 4.4-10.8 10^3/uL Red Blood Count 5.76 4.5-5.90 10^6/uL Hemoglobin 17.2 13.5-17.5 g/dL Hematocrit 51.2 41.0-53.0 % Mean Corpuscular Volume 88.8 80.0-100.0 fL Mean Corpuscular Hemoglobin 29.8 28.0-32.0 pg Mean Corpuscular Hemoglobin Concent 33.5 32.0-36.0 g/dL Red Cell Distribution Width 15.3 H 11.8-14.3 % Platelet Count 251 140-450 10^3/uL Mean Platelet Volume 8.9 6.9-10.8 fL Neutrophils (%) (Auto) 66.5 37.0-80.0 % Lymphocytes (%) (Auto) 18.2 10.0-50.0 % Monocytes (%) (Auto) 14.7 H 0.0-12.0 % Eosinophils (%) (Auto) 0.1 0.0-7.0 % Basophils (%) (Auto) 0.5 0.0-2.0 % Neutrophils # (Auto) 4.2 1.6-8.6 10 ^3/uL Lymphocytes # (Auto) 1.1 0.4-5.4 10 ^3/uL Monocytes # (Auto) 0.9 0-1.3 10 ^3/uL Eosinophils # (Auto) 0 0-0.8 10 ^3/uL Basophils # (Auto) 0 0-0.2 10 ^3/uL Nucleated Red Blood Cells 0.1 % Sodium Level 139 136-145 mmol/L Potassium Level 3.5 3.5-5.1 mmol/L Chloride Level 104 98-107 mmol/L Carbon Dioxide Level 27 20-31 mmol/L Anion Gap 8 5-15 Blood Urea Nitrogen 6 L 9-23 mg/dL Creatinine 0.85 0.700-1.30 mg/dL Glomerular Filtration Rate Calc 106 >90 mL/min BUN/Creatinine Ratio 7.1 L 10.0-20.0 Serum Glucose 94 74-106 mg/dL Calcium Level 9.2 8.7-10.4 mg/dL Total Bilirubin 0.3 0.2-1.0 mg/dL Aspartate Amino Transferase (AST) 233 H 13-40 U/L Alanine Aminotransferase (ALT) 185 H 7-40 U/L Alkaline Phosphatase 204 H 46-116 U/L Total Protein 6.6 5.7-8.2 g/dL Albumin 4.0 3.2-4.8 g/dL Vancomycin Level Trough 17.2 H 5-10 ug/mL Influenza Type A Antigen Negative Negative Influenza Type B Antigen Negative Negative SARS-CoV-2 Antigen (Rapid) Negative NEGATIVE Test 07/21/24 05:04 07/21/24 02:14 Range/Units Lactic Acid Level 1.5 0.4-2.0 mmol/L Urine Color Yellow Yellow Urine Clarity Clear Clear Urine pH 7.5 5.0-9.0 Urine Specific [place] 1.029 1.001-1.035 Urine Protein 1+ H Negative Urine Ketones 4+ H Negative Urine Blood Negative Negative /uL Urine Nitrite Negative Negative Urine Bilirubin Negative Negative Urine Urobilinogen 3 H Negative mg/dL Urine Leukocyte Esterase Negative Negative /uL Urine RBC 1 0 - 3 /hpf Urine WBC <1 0 - 3 /hpf Urine Squamous Epithelial Cells None seen <5 /hpf Urine Bacteria None seen None Seen /hpf Urine Mucus Few None Seen Urine Glucose Normal Normal mg/dL Microbiology Date/Time Source Procedure Growth Status 07/21/24 05:14 Blood Blood Culture - Preliminary NO GROWTH AFTER 48 HOURS OF INCUBATION. Resulted Assessment 49-year-old male with a history of hypertension IBS diverticulitis in the past kidney stones GERD presenting with the complaints of abdominal pain patient had normal liver enzymes on admission has been increased in the last 48 hours with ALT AST as well as alk phos all increased patient has no history of hepatitis history of status post gallbladder surgery Patient's takes [place] and muscle relaxants for BiPAP disease and takes marijuana and smokes denied any alcohol ingestion Physical examination is unremarkable except for some tenderness in the right low right upper quadrant as well as in the right flank area pain. Clinical impression Abdominal pain abnormal liver enzymes Right Kidney stone on CT scan Status post cholecystectomy Possibility of a CBD stone or other pathology can not be excluded Other possibilities Tylenol or other medication induced transaminitis Plan/Recommendation will recommend MRI MRCP as soon as possible Hepatitis panel await the report Of the MRI MRCP may need ERCP and other workup as necessary We will avoid Tylenol and other hepatotoxic medications Thank you Dr. Ayala Plan discussed with: Patient KATHERINE AYALA MD Jul 23, 2024 13:59
--- NOTE | 2024-07-23 16:41 | DVH ---
[id number] MRI MRCP MRI Attending Name: JOSSUEAIMEE MARIRabia LESTER COMPARISON: Ultrasound dated 07/22/2024, CT scan dated 07/21/2024 INDICATION: INTRACTABLE ABDOMINAL PAIN TECHNIQUE: MRCP was performed without the use of intravenous contrast using a MRI imaging system. Three-dimensional MRCP was performed using maximum intensity projection reconstruction on an [employer] workstation under concurrent supervision. FINDINGS: Visualized lower thorax: Limited imaging of the thorax demonstrates no suspicious pleural or parenchy mal disease. Liver: Normal in morphology and signal intensity. Gallbladder: Surgically absent. Biliary system: There is no intrahepatic or extrahepatic bile duct dilatation. No filling defect to s uggest choledocholithiasis. Spleen: Normal in morphology and signal intensity. Pancreas: Normal in morphology and signal intensity. Adrenal glands: Normal in morphology and signal intensity. Kidneys: The kidneys are symmetric in size and appearance. No hydronephrosis. Several small cysts are seen in the bilateral kidneys measuring up to 1 cm in the upper pole of the right kidney. Urinary tract: The included ureters, as visualized, are normal in course and caliber. GI tract: No evidence of bowel obstruction. Scattered descending colon diverticula are noted. Lymph nodes: No enlarged lymph nodes. Peritoneum: No ascites. Musculoskeletal: The bone marrow signal intensity is within normal limits. IMPRESSION: 1. No acute abnormality noted in the abdomen. 2. Remote cholecystectomy . No intrahepatic or extrahepatic ductal dilatation. No choledocholithiasi s.
--- NOTE | 2024-07-23 16:58 | DVHPN2 ---
Progress Note - Dictate Date Seen: Jul 23, 2024 Medical Necessity Reason Pt with a Central, PICC or Fol: No Subjective Having chronic pain and asking for pain medications. Evaluated by GI and MRCP is ordered. LFTs slightly increased today. Tolerating diet. No abdominal pain. vital signs Vital Sign Date Time Temp Pulse Resp B/P (MAP) Pulse Ox O2 Delivery O2 Flow Rate FiO2 07/23/24 16:53 99.7 117 20 125/74 (91) 92 99.7 07/23/24 08:00 Room Air* 0 21 Total Intake and Output 07/22/24 07/22/24 07/23/24 15:00 23:00 07:00 Intake Total 100 ml 900 ml 300 ml Balance 100 ml 900 ml 300 ml medications Current Medications Medications Dose Ordered Sig/Jace Route Start Time Stop Time Status Last Admin Dose Admin Ondansetron HCl 4 mg Q4HP PRN IV 07/21/24 11:30 07/22/24 18:01 4 MG Acetaminophen 650 mg Q6HP PRN PO 07/21/24 11:30 07/22/24 06:23 650 MG Morphine Sulfate 2 mg Q4HPRN PRN IV 07/21/24 11:30 07/23/24 11:20 2 MG Cyclobenzaprine HCl 10 mg Q8HPRN PRN PO 07/22/24 16:15 objective Alert awake oriented x3. HEENT neck supple no JVD. Heart regular rate and rhythm S1-S2. Lungs fair air movement without rales wheezes. Abdomen obese soft nontender nondistended positive bowel sounds. Extremities no edema positive pulses. laboratory and microbiology Laboratory Tests 07/23/24 06:44 Test 07/23/24 06:44 Range/Units Serum Glucose 94 74-106 mg/dL Assessment/Plan Transaminitis Chronic pain syndrome MRCP is ordered by environmental services assistant today. Hepatitis panel is pending. We will repeat LFTs tomorrow. Wait for MRCP results. Continue current pain regimen. Continue current diet. Further clinical management per clinical course and pending evaluations and studies. Discussed with the nurse regarding care plan. Problems(with codes): (1) IBS (irritable bowel syndrome) (2) Kidney stone (3) Nonspecific abdominal pain (4) Chronic back pain greater than 3 months duration Plan discussed with: KAHLIL Mcgee MD Jul 23, 2024 16:58
[2024-07-24 01:00] VITALS: BP 127/73; PULSE 99; RESP 18; TEMP 99.1; O2SAT 92
[2024-07-24 05:00] VITALS: BP 135/67; PULSE 106; RESP 20; TEMP 98.7; O2SAT 90
[2024-07-24 07:23] LABS: Albumin 4.1 g/dL (3.2-4.8); Bilirubin, Direct 0.2 mg/dL (<0.3)
[2024-07-24 07:24] LABS: Total Protein 6.7 g/dL (5.7-8.2)
[2024-07-24 07:28] LABS: Bilirubin, Total 0.3 mg/dL (0.2-1.0)
[2024-07-24 08:51] VITALS: BP 145/79; PULSE 99; RESP 19; TEMP 98.7; O2SAT 90
[2024-07-24 09:11] LABS: Hepatitis A Ab IgM Negative; Hepatitis B Core IgM Negative (Negative); Hepatitis B Surface Antigen Negative (Negative); Hepatitis C Antibody Negative (Negative)
[2024-07-24 13:00] VITALS: BP 118/72; PULSE 103; RESP 19; TEMP 98.6; O2SAT 91
[2024-07-24 13:51] LABS: Albumin 3.8 g/dL (3.2-4.8); Bilirubin, Direct 0.2 mg/dL (<0.3); Bilirubin, Total 0.3 mg/dL (0.2-1.0); Total Protein 6.2 g/dL (5.7-8.2)
--- NOTE | 2024-07-24 14:54 | DVHDS2 ---
Discharge Summary Date of Admission Jul 21, 2024 at 11:30 Date of Discharge: Jul 24, 2024 Labs/Diagnostic Data: Laboratory Results Test 07/24/24 12:56 07/24/24 05:08 07/23/24 06:44 07/22/24 07:15 Total Bilirubin 0.3 mg/dL (0.2-1.0) Direct Bilirubin 0.2 mg/dL (<0.3) Aspartate Amino Transferase (AST) 272 U/L (13-40) Alanine Aminotransferase (ALT) 208 U/L (7-40) Alkaline Phosphatase 218 U/L (46-116) Total Protein 6.2 g/dL (5.7-8.2) Albumin 3.8 g/dL (3.2-4.8) Lipase 29 U/L (12-53) White Blood Count 6.3 10^3/uL (4.4-10.8) Red Blood Count 5.76 10^6/uL (4.5-5.90) Hemoglobin 17.2 g/dL (13.5-17.5) Hematocrit 51.2 % (41.0-53.0) Mean Corpuscular Volume 88.8 fL (80.0-100.0) Mean Corpuscular Hemoglobin 29.8 pg (28.0-32.0) Mean Corpuscular Hemoglobin Concent 33.5 g/dL (32.0-36.0) Red Cell Distribution Width 15.3 % (11.8-14.3) Platelet Count 251 10^3/uL (140-450) Mean Platelet Volume 8.9 fL (6.9-10.8) Neutrophils (%) (Auto) 66.5 % (37.0-80.0) Lymphocytes (%) (Auto) 18.2 % (10.0-50.0) Monocytes (%) (Auto) 14.7 % (0.0-12.0) Eosinophils (%) (Auto) 0.1 % (0.0-7.0) Basophils (%) (Auto) 0.5 % (0.0-2.0) Neutrophils # (Auto) 4.2 10 ^3/uL (1.6-8.6) Lymphocytes # (Auto) 1.1 10 ^3/uL (0.4-5.4) Monocytes # (Auto) 0.9 10 ^3/uL (0-1.3) Eosinophils # (Auto) 0 10 ^3/uL (0-0.8) Basophils # (Auto) 0 10 ^3/uL (0-0.2) Nucleated Red Blood Cells 0.1 % Sodium Level 139 mmol/L (136-145) Potassium Level 3.5 mmol/L (3.5-5.1) Chloride Level 104 mmol/L (98-107) Carbon Dioxide Level 27 mmol/L (20-31) Anion Gap 8 (5-15) Blood Urea Nitrogen 6 mg/dL (9-23) Creatinine 0.85 mg/dL (0.700-1.30) Glomerular Filtration Rate Calc 106 mL/min (>90) BUN/Creatinine Ratio 7.1 (10.0-20.0) Serum Glucose 94 mg/dL (74-106) Calcium Level 9.2 mg/dL (8.7-10.4) Vancomycin Level Trough 17.2 ug/mL (5-10) Test 07/22/24 07:04 07/21/24 08:00 07/21/24 05:04 07/21/24 02:14 Hepatitis A IgM Antibody Negative Hepatitis B Surface Antigen Negative (Negative) Hepatitis B Core IgM Antibody Negative (Negative) Hepatitis C Antibody Negative (Negative) Influenza Type A Antigen Negative (Negative) Influenza Type B Antigen Negative (Negative) SARS-CoV-2 Antigen (Rapid) Negative (NEGATIVE) Lactic Acid Level 1.5 mmol/L (0.4-2.0) Urine Color Yellow (Yellow) Urine Clarity Clear (Clear) Urine pH 7.5 (5.0-9.0) Urine Specific [place] 1.029 (1.001-1.035) Urine Protein 1+ (Negative) Urine Ketones 4+ (Negative) Urine Blood Negative /uL (Negative) Urine Nitrite Negative (Negative) Urine Bilirubin Negative (Negative) Urine Urobilinogen 3 mg/dL (Negative) Urine Leukocyte Esterase Negative /uL (Negative) Urine RBC 1 /hpf (0 - 3) Urine WBC <1 /hpf (0 - 3) Urine Squamous Epithelial Cells None seen /hpf (<5) Urine Bacteria None seen /hpf (None Seen) Urine Mucus Few (None Seen) Urine Glucose Normal mg/dL (Normal) Other Laboratory Tests 07/23/24 06:44 Brief Hx & Hospital Course: Christopher Peck is a 49-year-old male with past medical history of hypertension, IBS, diverticulitis, kidney stones, GERD, degenerative disc disease, cholecystectomy, and appendectomy who presents to the ED for right flank pain, low back pain, nausea, diarrhea, cough and congestion x2 days. Patient reports that it started yesterday around 6:30 a.m. he tried to go to slowly get some rest with no relief. Patient states that the right flank pain is sharp, constant, 10/10 and pain. Patient reports that he also took Crossroads with no relief. Patient states that movement makes it worse. Patient also states that there was no blood in his stool. Patient reports that he is able to take morphine for pain but just needs to be pushed slow because of the nausea it gives him. Patient reports that he smokes cigars, cigarettes, and uses marijuana but does not drink. Patient denies any recent sick contacts, recent travels, and recent ingestion of spoiled food. Patient denies chest pain, shortness of breath, abdominal pain, vomiting, lightheadedness, dizziness, and headaches. Patient also reports that he is compliant with all his medications. He is admitted to the hospital and underwent GI evaluation. His elevated liver function tests felt secondary to possible narcotic with Tylenol use. Patient is advised to avoid Tylenol/NSAIDs. Otherwise while in the hospital his abdominal pain has resolved. Remaining workup for the pain is unremarkable. He is tolerating diet. No nausea vomiting. He appeared back to baseline normal status. Therefore it is felt he could be safely discharged home with a close outpatient follow up as mentioned. Patient verbalized understanding of his hospital diagnosis, treatment he received, discharge medications, discharge instructions and follow-up plan of care as mentioned. Consults/Reason for consult Procedure: US LIVER 07/22/2024 04:06 PM Indication: elevated LFTs IMPRESSION: 1. No sonographic evidence for acute abnormality in the right upper quadrant. Operations or Procedures MRI MRCP MRI Attending Name: ANDRES SAMUEL COMPARISON: Ultrasound dated 07/22/2024, CT scan dated 07/21/2024 INDICATION: INTRACTABLE ABDOMINAL PAIN IMPRESSION: 1. No acute abnormality noted in the abdomen. 2. Remote cholecystectomy . No intrahepatic or extrahepatic ductal dilatation. No choledocholithiasis. Condition at Discharge: Stable Final Diagnosis/Problems List Transaminitis possibly secondary Tylenol, chronic pain on narcotics Discharge Disposition: Home Discharge Instruct/Medications Diet: Consistent carbohydrate, Cardiac 2g Na,low cholest Activity: No Restrictions, As Tolerated Follow Up/Referral: Primary care physician in one week to repeat labs for his liver function tests(AST/ALT/ALP). Follow up with deputy grand jury Dr. Rivera in one week for abdominal pain and elevated liver function tests. Medications: Stop taking Tylenol and [id number] NSAIDs due to abnormal liver tests. Also stop taking Crossroads given it has Tylenol in it. Have pain management doctor prescribed non Tylenol narcotic pain medication. Continued Medications: Belladonna Alkaloids-Phenobarb () Tab Cyclobenzaprine Hcl (Cyclobenzaprine Hcl) 10 Mg Tab 10 MG PO DAILY for 30 Days, MG Hydrochlorothiazide (Hydrochlorothiazide) 12.5 Mg Cap 1 CAP PO DAILY, #30 CAP 5 Refills Losartan Potassium (Losartan Potassium) 50 Mg Tab 50 MG PO DAILY for 30 Days, MG Metoclopramide Hcl (Reglan) 10 Mg Tab 10 MG PO BID PRN for 5 Days, #10 TAB Tamsulosin Hcl (Tamsulosin Hcl) 0.4 Mg Cap 1 CAP PO BID for 3 Days, #6 CAP 5 Refills Discontinued Medications: Cephalexin (Keflex 500) 500 Mg Cap 1 CAP PO TID for 5 Days, #15 CAP Hydrocodone-Acetaminophen (Crossroads 10/325MG) 1 Tab Tb Hydrocodone-Acetaminophen (Hydrocodone Bitartrate/AC 10-325 mg) 1 Tab Tab 1 TAB PO Q6HP PRN, #20 TAB Hydrocodone-Acetaminophen (Hydrocodone Bitartrate/AC 5-325 mg) 1 Tab Tab 1 TAB PO TID for 5 Days, #15 TAB Metronidazole (Flagyl) 500 Mg Tab 1 TAB PO TID for 7 Days, #21 TAB Discharge Statement: "Patient was advised to return to the ER or call 911 if any headaches, dizziness, shortness of breath, chest pain, abdominal pain, bleeding, fevers, or worsening of medical condition. Patient was counseled about treatment plan, medications, possible side effects, patientverbalized understanding. All questions were answered to the best of my ability. This discharge took greater then 30 minutes in planning, reviewing documentation, counseling the patient, and discussing with other team members." ASSESSMENT ASSESSMENT Assessment Transaminitis possibly secondary Tylenol, chronic pain on narcotics KAHLIL MCCLURE MD Jul 24, 2024 14:54
[2024-07-24 15:36] VITALS: BP 118/72; PULSE 103; RESP 18; TEMP 98.6; O2SAT 92
--- NOTE | 2024-07-24 17:31 | DVHPN2 ---
Progress Note Date Seen: Jul 24, 2024 Resident Creating Document: JOSEFINA KC RESIDENT Medical Necessity Reason Pt with a Central, PICC or Fol: No Subjective Review of Systems Saw the patient at bedside, spoke to the primary team physician, patient is planning to be discharge. Symptoms improved. Patient reports: No new complaints Objective vital signs Vital Sign Date Time Temp Pulse Resp B/P (MAP) Pulse Ox O2 Delivery O2 Flow Rate FiO2 07/24/24 15:36 98.6 103 18 92 07/24/24 15:19 128/72 07/24/24 08:10 Room Air* 0 21 Total Intake and Output 07/23/24 07/23/24 07/24/24 15:00 23:00 07:00 Intake Total 900 ml 531 ml Balance 900 ml 531 ml Examination: GENERAL:Normal, HEENT:Normal, NECK:Normal, LUNGS:Normal, CVS:Normal, ABDOMEN:Normal (Unremarkable abdomen, no tenderness, guarding or concerning findings.), MSK:Normal, SKIN:Normal, NEURO:Normal, :Normal laboratory and microbiology Laboratory Tests 07/23/24 06:44 Test 07/23/24 06:44 Range/Units Serum Glucose 94 74-106 mg/dL Microbiology Date/Time Source Procedure Growth Status 07/21/24 05:14 Blood Blood Culture - Preliminary NO GROWTH AFTER 72 HOURS OF INCUBATION. Resulted Labs and/or images reviewed: Labs reviewed by me, Image(s) reviewed by me Problem List/Assessment/Plan Problem List/Assessment/Plan Reasons for consultation: Abdominal pain in the right upper quadrant as well as right flank Hospitalization Summary: Mr. Christopher Peck, a 49-year-old male with a history of hypertension, IBS, diverticulitis, kidney stones, GERD, degenerative disc disease, cholecystectomy, and appendectomy, presented to the ED with right flank pain, low back pain, nausea, diarrhea, cough, and congestion for two days. His right flank pain is sharp, constant, and rated 10/10, with no relief from [place]. He smokes cigars, cigarettes, and uses marijuana but does not drink. He denies chest pain, shortness of breath, abdominal pain, vomiting, lightheadedness, dizziness, headaches, recent sick contacts, travels, or ingestion of spoiled food. He is compliant with his medications and lives with his family. In hospital patient was found to have kidney stone, diverticulosis, right upper quadrant pain and transaminitis. With conservative treatment patient is hemodynamically stable, labs unremarkable and symptoms subsided. GI Assessment: #Acute abdominal pain in right upper quadrant. Lipase negative. #Status post cholecystectomy #Possibility of a CBD stone passed unnoticed, liver ultrasound, abdomen pelvis CT and MRCP negative #Transaminitis secondary due to Tylenol/other hepatotoxic medications, could be viral etiology. Hepatitis panel negative. #GERD #Sigmoid diverticulosis without acute diverticulitis #history of Irritable bowel syndrome #History of diverticulitis #Acute abdominal pain related to home belladona use - #History of kidney stone #Osteoarthritis and Degenerative disc disease #Essential hypertension #Right Kidney stone on CT scan #Chronic back pain on opioid analgesics. GI Plan: #Medications: Continue home medications #Labs: Follow up outpatient with Dr. Garvey PCP, and follow CBC and CMP in 1 week. #Procedure: Please follow up with primary care physician for age-appropriate screening colonoscopy. #Others: Avoid alcohol, Tylenol, or any other Tylenol containing medications. #please scheduled follow up with GI as outpatient with Dr. Damari Rivera. Thank you so much for the opportunity to consult on your patient. GI team signed off the patient. In case of any questions or concerns please feel free to reach out. Case and action plan discussed with Dr. Pippa Rivera. Complex care planning needed total 49 minutes of detailed discussion. The patient and caregiver team agreed to the plan. Plan discussed with: Patient, Other (primary team. ) Dietary Evaluation Review Comments: Monitor PO intake to meet 75% of his needs, Expected Outcomes/Goals: Gradual weight loss JOSEFINA KC RESIDENT Jul 24, 2024 17:31
== END 2024-07-24 16:54 | disposition home or self-care (01) | DRG 861 ==
LOC: EDBD 02:05 → ER 02:05 → OVERFLOW 11:30 → WEST WING 20:32
PROVIDERS: ATTEND Hospitalist
DX: R74.01 Elevation of levels of liver transaminase levels (principal); D72.829 Elevated white blood cell count, unspecified; G89.4 Chronic pain syndrome; K57.30 Diverticulosis of large intestine without perforation or abscess without bleeding; K21.9 Gastro-esophageal reflux disease without esophagitis; N20.0 Calculus of kidney; I10 Essential (primary) hypertension; Z20.822 Contact with and (suspected) exposure to COVID-19; F17.210 Nicotine dependence, cigarettes, uncomplicated; E86.0 Dehydration; Z87.442 Personal history of urinary calculi; Z88.0 Allergy status to penicillin; Z91.012 Allergy to eggs; Z90.49 Acquired absence of other specified parts of digestive tract; Z82.49 Family history of ischemic heart disease and other diseases of the circulatory system; Z83.3 Family history of diabetes mellitus; T39.1X5A Adverse effect of 4-Aminophenol derivatives, initial encounter
CPT/HCPCS: 36415; 74176; 74181; 76705; 80053; 80074; 80076; 80202; 81001; 83605; 83690; 85025; 87040; 87426; 87804; G0378; J2185; J2405; J3490; J7060

== ENCOUNTER 2025-05-29 05:17 | Inpatient (IN) | payer MEDICAID ==
[~2025-05-29] VITALS: Ht 175.3 cm; Wt 88.7 kg
[~2025-05-29 05:17] MED LIST changes: -CEPH-509 PO; +CYCL-839 PO; -HYDR-4798 PO; -HYDR-4902 PO; +HYDR12.59 PO; +LOSA-534 PO; -METO-281; -METR-344 PO; -NOR10T
[2025-05-29] MEDS: PROCHLORPERAZINE EDISYLATE 5 MG/ML 2ML VIAL IV ONE (06:15)
[2025-05-29] MEDS: HYDROmorphone HCL 2 MG/ML VL/or syr IV ONE (06:15)
--- NOTE | 2025-05-29 06:26 | ED.PDOC ---
General HPI Comments 50-year-old male with PMHx HTN, DDD, IBS, asthma, kidney stones who presents to the ED via EMS with a chief complaint of RT flank pain onset 3 days. Patient states he began experiencing RT flank pain 3 days ago, as well as nausea, vomiting. He currently rates pain 04/20. Has experienced kidney stones in the past, states pain is similar. Denies fever, chills, diarrhea, constipation, chest pain, shortness of breath, dizziness, headache, dysuria, hematuria, hematemesis. No other symptoms or modifying factors present at this time. Chief Complaint: Flank Pain Time Seen by MD: 06:15 Primary Care Provider: YAS Fernandes notes: Nurses Notes, Medications, Allergies Allergies: Coded Allergies: Amoxicillin (Verified Allergy, Unknown, 07/21/24) Clavulanic Acid (Verified Allergy, Unknown, 07/21/24) Egg-derived Products (Verified Allergy, Unknown, 07/22/24) UNKNOWN REACTION Ketorolac Tromethamine (Verified Allergy, Unknown, 03/24/16) RASH Home Meds Active Scripts Tamsulosin Hcl (Tamsulosin Hcl) 0.4 Mg Cap, 1 CAP PO BID for 3 Days, #6 CAP 5 Refills Prov:ARABELLA BARBA MD 01/03/22 Metoclopramide Hcl (Reglan) 10 Mg Tab, 10 MG PO BID PRN for 5 Days, #10 TAB Prov:ARABELLA BARBA MD 01/03/22 Reported Medications Cyclobenzaprine Hcl (Cyclobenzaprine Hcl) 10 Mg Tab, 10 MG PO DAILY for 30 Days, MG 07/21/24 Losartan Potassium (Losartan Potassium) 50 Mg Tab, 50 MG PO DAILY for 30 Days, MG 07/21/24 Hydrochlorothiazide (Hydrochlorothiazide) 12.5 Mg Cap, 1 CAP PO DAILY, #30 CAP 5 Refills 07/21/24 Belladonna Alkaloids-Phenobarb () Tab 10/13/10 Information Source: Patient, Emergency Med Personnel Mode of Arrival: EMS Severity: Moderate Timing: Days Duration: Since onset Prehospital treatment: None Onset: Spontaneous Symptoms: Other History of: Kidney stone Location: (R) Flank Penile discharge: None Modifying factors: None associated signs and symptoms: Nausea, Vomiting, Flank Pain Past Medical History PAST MEDICAL HISTORY: Asthma, GERD, HTN, Kidney Stones Surgical History: Appendectomy, Cholecystectomy, Tonsillectomy Family History Family History: Reviewed,noncontributory to illness Social History Smoker: Cigar Alcohol: Denies ETOH Use Drugs: Marijuana Lives In: Home Constitutional: denies: chills, diaphoresis, fatigue, fever, malaise, sweats, weakness, others EENTM: denies: blurred vision, double vision, ear bleeding, ear discharge, ear drainage, ear pain, ear ringing, eye pain, eye redness, hearing loss, mouth pain, mouth swelling, nasal discharge, nose bleeding, nose congestion, nose pain, photophobia, tearing, throat pain, throat swelling, voice changes, others Respiratory: denies: cough, hemoptysis, orthopnea, SOB at rest, shortness of breath, SOB with excertion, stridor, wheezing, others Cardiovascular: denies: chest pain, dizzy spells, diaphoresis, Dyspnea on exertion, edema, irregular heart beat, left arm pain, lightheadedness, palpitations, PND, syncope, others Gastrointestinal: reports: nausea, vomiting; denies: abdomen distended, abdominal pain, blood streaked bowels, constipated, diarrhea, dysphagia, difficulty swallowing, hematemesis, melena, poor appetite, poor fluid intake, rectal bleeding, rectal pain, others Genitourinary: reports: flank pain (RT); denies: burning, dysuria, frequency, hematuria, incontinence, penile discharge, penile sore, pain, testicle pain, testicle swelling, urgency, others Neurological: denies: dizziness, fainting, headache, left sided numbness, left sided weakness, numbness, paresthesia, pre-existing deficit, right sided numbness, right sided weakness, seizure, speech problems, tingling, tremors, weakness, others Musculoskeletal: denies: back pain, gout, joint pain, joint swelling, muscle pain, muscle stiffness, neck pain, others Integumetry: denies: bruises, change in color, change in hair/nails, dryness, laceration, lesions, lumps, rash, wounds, others Allergic/Immunocompromised: denies: Difficulty Healing, Frequent Infections, Hives, Itching, others Hematologic/Lymphatic: denies: anemia, blood clots, easy bleeding, easy bruising, swollen glands, others Endocrine: denies: excessive hunger, excessive sweating, excessive thirst, excessive urination, flushing, intolerance to cold, intolerance to heat, unexplained weight gain, unexplained weight loss, others Psychiatric: denies: anxiety, bipolar disorder, depression, hopeless, panic disorder, schizophrenia, sleepless, suicidal, others All Other Systems: Reviewed and Negative Physical Exam General Appearance: Moderate Distress HEENT: Normal ENT Inspection, Pharynx Normal, TMs Normal Neck: Full Range of Motion, Non-Tender, Normal, Normal Inspection Respiratory: Chest Non-Tender, Lungs Clear, No Accessory Muscle Use, No Respiratory Distress, Normal Breath Sounds Cardiovascular: No Edema, No JVD, No Murmur, No Gallop, Normal Peripheral Pulses, Regular Rate/Rhythm Breast Exam: Deferred Gastrointestinal: No Organomegaly, Non Tender, No Pulsatile Mass, Normal Bowel Sounds, Soft Genitalia: Deferred Pelvic: Deferred Rectal: Deferred Extremities: No calf tenderness, Normal capillary refill, Normal inspection, Normal range of motion, Non-tender, No pedal edema Musculoskeletal : Apperance: Normal Neurologic: Alert, automotive service technician II-XII nml as Tested, No Motor Deficits, Normal Affect, Normal Mood, No Sensory Deficits Cerebellar Function: Normal Reflexes: Normal Skin: Dry, Normal Color, Warm Lymphatic: No Adenopathy Was a procedure done? Was a procedure done?: No Differential Diagnosis Kidney stone (Female): N/A Kidney stone (Male): Strain, Urinary obstruction, Urolithiasis X-Ray, Labs, Meds, VS Vital Signs Date Time Temp Pulse Resp B/P (MAP) Pulse Ox O2 Delivery O2 Flow Rate FiO2 05/29/25 05:37 98.4 112 18 125/98 98 98.4 Lab Test 05/29/25 06:36 Range/Units White Blood Count 16.7 H 4.4-10.8 10^3/uL Red Blood Count 6.53 H 4.5-5.90 10^6/uL Hemoglobin 19.9 H 13.5-17.5 g/dL Hematocrit 57.8 H 41.0-53.0 % Mean Corpuscular Volume 88.6 80.0-100.0 fL Mean Corpuscular Hemoglobin 30.5 28.0-32.0 pg Mean Corpuscular Hemoglobin Concent 34.4 32.0-36.0 g/dL Red Cell Distribution Width 15.1 H 11.8-14.3 % Platelet Count 365 140-450 10^3/uL Mean Platelet Volume 8.1 6.9-10.8 fL Neutrophils (%) (Auto) 76.5 37.0-80.0 % Lymphocytes (%) (Auto) 11.0 10.0-50.0 % Monocytes (%) (Auto) 11.4 0.0-12.0 % Eosinophils (%) (Auto) 0.5 0.0-7.0 % Basophils (%) (Auto) 0.6 0.0-2.0 % Neutrophils # (Auto) 12.8 H 1.6-8.6 10 ^3/uL Lymphocytes # (Auto) 1.8 0.4-5.4 10 ^3/uL Monocytes # (Auto) 1.9 H 0-1.3 10 ^3/uL Eosinophils # (Auto) 0.1 0-0.8 10 ^3/uL Basophils # (Auto) 0.1 0-0.2 10 ^3/uL Nucleated Red Blood Cells 0.8 % Sodium Level 140 136-145 mmol/L Potassium Level 4.2 3.5-5.1 mmol/L Chloride Level 106 98-107 mmol/L Carbon Dioxide Level 22 20-31 mmol/L Anion Gap 12 5-15 Blood Urea Nitrogen 10 9-23 mg/dL Creatinine 1.34 H 0.700-1.30 mg/dL Glomerular Filtration Rate Calc 64 >90 mL/min BUN/Creatinine Ratio 7.5 L 10.0-20.0 Serum Glucose 138 H 74-106 mg/dL Calcium Level 10.2 8.7-10.4 mg/dL IMPRESSION: 1. Mild We did review the CAT scan again and there is a 5 mm stone on the right side with some obstruction. The patient was given Dilaudid for the pain and Zofran for the nausea The patient's CBC shows an elevated white blood cell count of 16.7 The chemistry panel shows a creatinine of 1.34 The rest of the labs are within normal limits At this time, the patient is being admitted. A urology consult will be obtained. The urine test is still pending Images Reviewed?: Images reviewed and evaluated by me Time of 1ST Reevaluation: 06:45 Reevaluation 1ST: Unchanged Patient Education/Counseling: Diagnosis, Treatment, Prognosis Family Education/Counseling: No Family Present SEPSIS Sepsis Screen Date sepsis recognized/suspect: May 29, 2025 Time Sepsis recognized/suspect: 525 Recent Procedure: No On Antibiotic Therapy: No Respiratory Rate >20: No Heart Rate >90: Yes Temp<36 C (96.8 F) or >38.3 C: No SBP <90 or MAP <65 mmHG: No New Acute Mental Status Change: No Is the patient on CPAP, BIPAP,: No Physician Orders Urinalysis (05/29/25 05:42) Ct Ab Pel Wo Con-No Oral Or Iv (05/29/25 06:15) Heplock Iv (05/29/25 06:15) Horse Trainer (05/29/25 06:15) Blood Pressure (05/29/25 06:15) Pulse Oximetry (05/29/25 06:15) Vital Signs Date Time Temp Pulse Resp B/P (MAP) Pulse Ox O2 Delivery O2 Flow Rate FiO2 05/29/25 05:37 98.4 112 18 125/98 98 98.4 Laboratory Tests Test 05/29/25 06:36 White Blood Count 16.7 10^3/uL (4.4-10.8) H Departure 1 Departure Time of Disposition: 07:35 Impression: Primary Impression: Right flank pain Additional Impression: Ureterolithiasis Disposition: ADMITTED INPATIENT Admit to: Med Surg Condition: Fair Critical Care Note Critical Care Time?: No Stability Stability form required: No Heart Score Heart Score: Heart Score Response (Comments) Value History N/A 0 EKG N/A 0 Age N/A 0 Risk Factors N/A 0 Troponin N/A 0 Total 0 I personally scribed for JASMEET WATTS MD ([email or web address]) on 05/29/25 at 06:25. Electronically submitted by Dina Hernandez ([email or web address]). I personally scribed for JASMEET WATTS MD ([email or web address]) on 05/29/25 at 07:31. Electronically submitted by Dina Hernandez ([email or web address]). JASMEET WATTS MD May 29, 2025 06:25
[2025-05-29 06:52] LABS: Mean Corpuscular Hemoglobin 30.5 pg (28.0-32.0)
[2025-05-29 06:54] LABS: Hemoglobin 19.9 g/dL (13.5-17.5); Mean Corpuscular Volume 88.6 fL (80.0-100.0); Nucleated Red Blood Cells % 0.8 %
[2025-05-29 06:55] LABS: Anion Gap 12 (5-15); Carbon Dioxide 22 mmol/L (20-31); Chloride 106 mmol/L (98-107); Potassium 4.2 mmol/L (3.5-5.1); Sodium 140 mmol/L (136-145)
[2025-05-29 06:56] LABS: Calcium 10.2 mg/dL (8.7-10.4)
[2025-05-29 07:01] LABS: BUN/Creatinine Ratio 7.5 (10.0-20.0); Blood Urea Nitrogen 10 mg/dL (9-23); Hematocrit 57.8 % (41.0-53.0)
[2025-05-29 07:02] LABS: Glucose 138 mg/dL (74-106)
--- NOTE | 2025-05-29 07:26 | DVH ---
Exam: CT CT AB PEL WO CON-NO ORAL OR IV History: Right flank pain. Comparison Study: CT CT AB PEL WO CON-NO ORAL OR IV on DOS: 07/21/24, CT CT AB PEL WO CON-NO ORAL OR IV on DOS: 01/20/24, CT ABD PELVIS WO CONTRAST on DOS: 01/03/22 Technique: Multidetector spiral CT of the abdomen and pelvis was performed from lung bases to pubic symphysis. Imaging was performed without intravenous contrast. Coronal and sagittal multiplanar reformats were obtained from the axial data set by the technologist. Radiation Dose : 1. Abdomen/Pelvis: CTDIvol 8.8 mGy, DLP 514.7 mGy*cm. Findings: Evaluation of vasculature and solid organs is limited due to lack of intravenous contrast use. Lung Bases: Right lower lobe atelectasis. Visualized portions of the heart and pericardium are unremarkable. Liver: The liver is normal in size. No focal lesions. Gallbladder and Biliary Tree: The gallbladder is surgically absent. No intrahepatic or extrahepatic biliary ductal dilatation. Spleen: Unremarkable Pancreas: The pancreas is grossly unremarkable. Adrenal Glands: Unremarkable Kidneys: There is mild right hydronephrosis due to 5 mm obstructive proximal right ureteral calculus. The left kidney is unremarkable. GI tract: The stomach is grossly normal in appearance. No evidence of small bowel wall thickening or abnormal dilatation to suggest bowel obstruction. Fatty submucosal deposition throughout the colon. There is sigmoid diverticulosis without acute diverticulitis. The appendix is not visualized, there are surgical clips at the base of the cecum. Peritoneum/mesentery/retroperitoneum. No evidence of free intraperitoneal air. No ascites. No evidence of suspicious lymphadenopathy. Abdominal Wall: Unremarkable. Vasculature: The visualized abdominal aorta is normal in size and caliber. Evaluation of abdominal and pelvic vessels is limited due to lack of intravenous contrast. Urinary Bladder: Grossly unremarkable for degree of distention. Pelvic Organs: Unremarkable Musculoskeletal: 2 stable lytic lesions in the right iliac wing. No acute osseous abnormality. IMPRESSION: 1. Mild
[2025-05-29] MEDS: SODIUM CHLORIDE 0.9% 1,000 ML IVB ONE (08:05)
[2025-05-29] MEDS ORDERED: ACETAMINOPHEN 325 MG TAB PO PRN (09:45)
[2025-05-29] MEDS ORDERED: KETOROLAC TROMETH 30 MG/ML 1ML VIAL IV PRN (09:45)
[2025-05-29] MEDS ORDERED: PANT40TA2 PO (10:05)
[2025-05-29] MEDS ORDERED: CYCL-611 PO (10:05)
--- NOTE | 2025-05-29 10:22 | DVHHP2 ---
History of Present Illness Reason for Visit: right flank pain History of Present Illness Christopher Peck is a 50-year-old male with past medical history of hypertension, chronic pain, GERD, DDD, and asthma who came to the hospital due to right flank pain and vomiting. Patient states his symptoms began about 3 days ago. At first the pain was tolerable, but it worsened over the last couple of days. Last night the pain became unbearable and he began having intractable nausea and vomiting prompting him to come to the hospital. Cardiovascular: HTN GI: GERD Musculoskeletal: Chronic low back pain, Osteoarthritis Past Surgical History: Appendectomy, Cholecystectomy, Tonsillectomy Smoke: <1 pack per day (Cigars) ALCOHOL: none Drugs: Marijuana Lives: with Family Domestic Violence: Neg Review of Systems Constitutional: No: Fever, Chills, Sweats, Weakness, Malaise, Other Eyes: No: Pain, Vision change, Conjunctivae inflammation, Eyelid inflammation, Other, Redness ENT: No: Ear pain, Ear discharge, Nose pain, Nose discharge, Nose congestion, Mouth pain, Mouth swelling, Throat pain, Throat swelling, Other Respiratory: No: Cough, Dry, Shortness of breath, SOB with excertion, Wheezing, Hemoptysis, Pleuritic Pain, Sputum, Wheezing, Other Cardiovascular: No: Chest Pain, Palpitations, Orthopnea, Paroxysmal Noc. Dyspnea, Edema, Lt Headedness, Other Gastrointestinal: Nausea, Vomiting; No: Abdominal Pain, Diarrhea, Constipation, Melena, Hematochezia, Other Genitourinary: No Dysuria, No Frequency, No Incontinence, No Hematuria, No Retention, No Other Musculoskeletal: back pain (right flank); No: other, neck pain, shoulder pain, arm pain, hand pain, leg pain, foot pain Skin: No: Rash, Lesions, Jaundice, Bruising, Other Neurological: No: Weakness, Numbness, Incoordination, Change in speech, Confusion, Seizures, Other Allergies: Coded Allergies: Amoxicillin (Verified Allergy, Unknown, 07/21/24) Clavulanic Acid (Verified Allergy, Unknown, 07/21/24) Egg-derived Products (Verified Allergy, Unknown, 07/22/24) UNKNOWN REACTION Ketorolac Tromethamine (Verified Allergy, Unknown, 03/24/16) RASH Morphine (Verified Allergy, Unknown, 05/29/25) Exam Vital Signs Vital Signs Date Time Temp Pulse Resp B/P (MAP) Pulse Ox O2 Delivery O2 Flow Rate FiO2 05/29/25 08:24 98.5 80 18 147/111 (123) 96 98.5 General Appearance: Alert, Oriented X3, Cooperative, moderate distress HEENT: Atraumatic, PERRLA Respiratory: Clear to auscultation, Normal air movement Cardiovascular: Normal S1, Normal S2, No murmurs, Other (SR-ST) Abdominal: Normal bowel sounds, Soft, Other (pelvic pain, right flank pain) Extremities: No clubbing, No cyanosis, No edema, Normal pulses, No tenderness/swelling Skin: No rashes, No breakdown, No significant lesion Neuro: Normal gait, Normal speech, Strength at 5/5 X4 ext, Normal tone, Sensation intact Psych/Mental Status: Mental status NL, Mood NL Labs/Xrays Labs Test 05/29/25 06:36 Range/Units White Blood Count 16.7 H 4.4-10.8 10^3/uL Red Blood Count 6.53 H 4.5-5.90 10^6/uL Hemoglobin 19.9 H 13.5-17.5 g/dL Hematocrit 57.8 H 41.0-53.0 % Mean Corpuscular Volume 88.6 80.0-100.0 fL Mean Corpuscular Hemoglobin 30.5 28.0-32.0 pg Mean Corpuscular Hemoglobin Concent 34.4 32.0-36.0 g/dL Red Cell Distribution Width 15.1 H 11.8-14.3 % Platelet Count 365 140-450 10^3/uL Mean Platelet Volume 8.1 6.9-10.8 fL Neutrophils (%) (Auto) 76.5 37.0-80.0 % Lymphocytes (%) (Auto) 11.0 10.0-50.0 % Monocytes (%) (Auto) 11.4 0.0-12.0 % Eosinophils (%) (Auto) 0.5 0.0-7.0 % Basophils (%) (Auto) 0.6 0.0-2.0 % Neutrophils # (Auto) 12.8 H 1.6-8.6 10 ^3/uL Lymphocytes # (Auto) 1.8 0.4-5.4 10 ^3/uL Monocytes # (Auto) 1.9 H 0-1.3 10 ^3/uL Eosinophils # (Auto) 0.1 0-0.8 10 ^3/uL Basophils # (Auto) 0.1 0-0.2 10 ^3/uL Nucleated Red Blood Cells 0.8 % Sodium Level 140 136-145 mmol/L Potassium Level 4.2 3.5-5.1 mmol/L Chloride Level 106 98-107 mmol/L Carbon Dioxide Level 22 20-31 mmol/L Anion Gap 12 5-15 Blood Urea Nitrogen 10 9-23 mg/dL Creatinine 1.34 H 0.700-1.30 mg/dL Glomerular Filtration Rate Calc 64 >90 mL/min BUN/Creatinine Ratio 7.5 L 10.0-20.0 Serum Glucose 138 H 74-106 mg/dL Calcium Level 10.2 8.7-10.4 mg/dL Exam: CT CT AB PEL WO CON-NO ORAL OR IV Findings: Evaluation of vasculature and solid organs is limited due to lack of intravenous contrast use. Lung Bases: Right lower lobe atelectasis. Visualized portions of the heart and pericardium are unremarkable. Liver: The liver is normal in size. No focal lesions. Gallbladder and Biliary Tree: The gallbladder is surgically absent. No intrahepatic or extrahepatic biliary ductal dilatation. Spleen: Unremarkable Pancreas: The pancreas is grossly unremarkable. Adrenal Glands: Unremarkable Kidneys: There is mild right hydronephrosis due to 5 mm obstructive proximal right ureteral calculus. The left kidney is unremarkable. GI tract: The stomach is grossly normal in appearance. No evidence of small bowel wall thickening or abnormal dilatation to suggest bowel obstruction. Fatty submucosal deposition throughout the colon. There is sigmoid diverticulosis without acute diverticulitis. The appendix is not visualized, there are surgical clips at the base of the cecum. Peritoneum/mesentery/retroperitoneum. No evidence of free intraperitoneal air. No ascites. No evidence of suspicious lymphadenopathy. Abdominal Wall: Unremarkable. Vasculature: The visualized abdominal aorta is normal in size and caliber. Evaluation of abdominal and pelvic vessels is limited due to lack of intravenous contrast. Urinary Bladder: Grossly unremarkable for degree of distention. Pelvic Organs: Unremarkable Musculoskeletal: 2 stable lytic lesions in the right iliac wing. No acute osseous abnormality. IMPRESSION: 1. Mild SEPSIS Sepsis Screen Date sepsis recognized/suspect: May 29, 2025 Time Sepsis recognized/suspect: 525 Recent Procedure: No On Antibiotic Therapy: No Respiratory Rate >20: No Heart Rate >90: Yes Temp<36 C (96.8 F) or >38.3 C: No SBP <90 or MAP <65 mmHG: No New Acute Mental Status Change: No Is the patient on CPAP, BIPAP,: No Physician Orders Urinalysis (05/29/25 05:42) Ct Ab Pel Wo Con-No Oral Or Iv (05/29/25 06:15) Heplock Iv (05/29/25 06:15) Oracle Application Consultant (05/29/25 06:15) Blood Pressure (05/29/25 06:15) Pulse Oximetry (05/29/25 06:15) Admit (05/29/25 09:40) Code Status (05/29/25 09:40) Hydrocodone-Acet 5/325mg Tab ([place] 5/32 (05/29/25 09:45) Ondansetron Hcl (Zofran) (05/29/25 09:45) Docusate Sodium Capsule (Colace Capsule) (05/29/25 09:45) Complete Blood Count (05/30/25 04:00) Comprehensive Metabolic Panel (05/30/25 04:00) Condition: Serious (05/29/25 09:40) Acetaminophen Tablet (Tylenol Tablet) (05/29/25 09:45) Clear Liq Diet (05/29/25 Lunch) Ketorolac Injection (Toradol Injection) (05/29/25 09:45) Tamsulosin Hydrochloride (Flomax) (05/29/25 09:45) Tamsulosin Hydrochloride (Flomax) (05/30/25 18:00) NS (05/29/25 09:45) NS (05/29/25 09:45) Metoclopramide Injection (Reglan Injecti (05/29/25 09:45) Losartan Tablet (Cozaar Tablet) (05/29/25 10:00) (Nf) Hydrochlorothiazide (05/29/25 10:00) Cyclobenzaprine Tablet (Flexeril Tablet) (05/29/25 10:15) Vital Signs Date Time Temp Pulse Resp B/P (MAP) Pulse Ox O2 Delivery O2 Flow Rate FiO2 05/29/25 08:24 98.5 80 18 147/111 (123) 96 98.5 05/29/25 06:15 80 16 157/111 05/29/25 05:37 98.4 112 18 125/98 98 98.4 Laboratory Tests Test 05/29/25 06:36 White Blood Count 16.7 10^3/uL (4.4-10.8) H Medications Medications Dose Ordered Sig/Jace Route Start Time Stop Time Status Last Admin Dose Admin Hydromorphone HCl 1 mg ONCE ONCE IV 05/29/25 06:15 05/29/25 06:17 DC 05/29/25 06:15 1 MG Prochlorperazine Edisylate 10 mg ONCE ONCE IV 05/29/25 06:15 05/29/25 06:17 DC 05/29/25 06:15 10 MG Sodium Chloride 1,000 ml @ 1,000 mls/hr Q1H ONCE IVB 05/29/25 06:15 05/29/25 07:14 DC 05/29/25 08:05 1,000 MLS/HR Assessment/Plan Assessment/Plan Assessment: Hydronephrosis with renal and ureteral calculous obstruction, Intractable nausea and vomiting, Hypertension, Kidney stones, GERD, Chronic pain, Plan: Admit to Med-Surg, Urology consult, IV hydration, Flomax, Pain management, Antiemetics, Clear liquid diet, Consider IR consult, Strain all urine, Home medications reconciled, Plan discussed with: Patient My Orders Orders - CALVIN SAMSONP Procedure Category Date Status Time Admit ADMIT 05/29/25 Transmitted 09:40 Code Status CODE 05/29/25 Transmitted 09:40 Hydrocodone-Acet PHA 05/29/25 Transmitted 5/325mg Tab ([place] 09:45 Ondansetron Hcl PHA 05/29/25 Transmitted (Zofran) 09:45 Docusate Sodium PHA 05/29/25 Transmitted Capsule (Colace 09:45 Complete Blood Count LAB 05/30/25 Verified 04:00 Comprehensive LAB 05/30/25 Verified Metabolic Panel 04:00 Condition: Serious IRINA 05/29/25 In Process 09:40 Acetaminophen Tablet PHA 05/29/25 Transmitted (Tylenol Tablet) 09:45 Clear Liq Diet DIET 05/29/25 Transmitted Lunch Ketorolac Injection PHA 05/29/25 Transmitted (Toradol Injection) 09:45 Tamsulosin PHA 05/29/25 Transmitted Hydrochloride (Flomax) 09:45 Tamsulosin PHA 05/30/25 Transmitted Hydrochloride (Flomax) 18:00 NS PHA 05/29/25 Transmitted 09:45 NS PHA 05/29/25 Transmitted 09:45 Metoclopramide PHA 05/29/25 Transmitted Injection (Reglan 09:45 Losartan Tablet PHA 05/29/25 Transmitted (Cozaar Tablet) 10:00 (NF) PHA 05/29/25 Transmitted Hydrochlorothiazide 10:00 Cyclobenzaprine PHA 05/29/25 Verified Tablet (Flexeril 10:15 Date of Service: May 29, 2025 Billing Provider: CALVIN SAMSON Common Visit Codes: [id number] INP/OBS CARE (MOD) CALVIN SAMSON May 29, 2025 10:22
--- NOTE | 2025-05-29 11:45 | DVHINCON2 ---
Date of service: May 29, 2025 Referring Physician Hospitalist Reason for Consultation Mild right hydronephrosis secondary to a 5 mm proximal right ureteral stone History of Present Illness Patient known to have a kidney stone in July of 2024 when he was admitted and discharged for a 4 mm right nephrolithiasis is now admitted for progression of that 5 mm (increased in size) proximal ureteral stone. 50-year-old male with past medical history of hypertension, chronic pain, GERD, DDD, and asthma who came to the hospital due to right flank pain and vomiting. Patient states his symptoms began about 3 days ago. At first the pain was tolerable, but it worsened over the last couple of days. Last night the pain became unbearable and he began having intractable nausea and vomiting prompting him to come to the hospital. Past Medical History Cardiovascular: HTN GI: GERD Musculoskeletal: Chronic low back pain, Osteoarthritis Kidney stone Past Surgical History Appendectomy, Cholecystectomy, Tonsillectomy Family History: Family history: Cardiovascular disease G8 MOTHER Family history: Diabetes mellitus G8 MOTHER Social History Smoker Allergies: Coded Allergies: Amoxicillin (Verified Allergy, Unknown, 07/21/24) Clavulanic Acid (Verified Allergy, Unknown, 07/21/24) Egg-derived Products (Verified Allergy, Unknown, 07/22/24) UNKNOWN REACTION Ketorolac Tromethamine (Verified Allergy, Unknown, 03/24/16) RASH Home Meds Active Scripts Tamsulosin Hcl (Tamsulosin Hcl) 0.4 Mg Cap, 1 CAP PO BID for 3 Days, #6 CAP 5 Refills Prov:ARABELLA ABRBA MD 01/03/22 Reported Medications Pantoprazole Sodium Sesquihydr (Protonix) 40 Mg Tab, 40 MG PO DAILY, #30 TAB 05/29/25 Cyclobenzaprine HCl (Cyclobenzaprine Hydrochlo) 10 Mg Tab, 10 MG PO TIDP PRN, TAB 05/29/25 Losartan Potassium (Losartan Potassium) 50 Mg Tab, 50 MG PO DAILY for 30 Days, MG 07/21/24 Hydrochlorothiazide (Hydrochlorothiazide) 12.5 Mg Cap, 1 CAP PO DAILY, #30 CAP 5 Refills 07/21/24 Belladonna Alkaloids-Phenobarb () Tab 10/13/10 Discontinued Reported Medications Cyclobenzaprine Hcl (Cyclobenzaprine Hcl) 10 Mg Tab, 10 MG PO DAILY for 30 Days, MG 07/21/24 Discontinued Scripts Metoclopramide Hcl (Reglan) 10 Mg Tab, 10 MG PO BID PRN for 5 Days, #10 TAB Prov:ARABELLA BARBA MD 01/03/22 Current Medications Current Medications Medications (Trade) Dose Ordered Sig/Jace Route PRN Reason Start Time Stop Time Status Last Admin Acetaminophen/ Hydrocodone Bitart ([place] 5/325MG Tab) 1 tab Q4HP PRN PO MODERATE PAIN (4-6 PAIN SCALE) 05/29/25 09:45 Ondansetron HCl (Zofran) 4 mg Q4HP PRN IV NAUSEA / VOMITING 05/29/25 09:45 Docusate Sodium (Colace Capsule) 100 mg BIDPRN PRN PO FOR CONSTIPATION 05/29/25 09:45 Acetaminophen (Tylenol Tablet) 650 mg Q6HP PRN PO PAIN SCALE 1-3 OR TEMP>100.4 05/29/25 09:45 Ketorolac Tromethamine (Toradol Injection) 15 mg Q6HPRN PRN IV SEVERE PAIN (7-10 PAIN SCALE) 05/29/25 09:45 06/03/25 09:44 UNV Tamsulosin HCl (Flomax) 0.4 mg QPM PO 05/30/25 18:00 Metoclopramide HCl (Reglan Injection) 10 mg Q6HPRN PRN IV NAUSEA / VOMITING 05/29/25 09:45 Losartan Potassium (Cozaar Tablet) 50 mg DAILY PO 05/29/25 10:00 Hydrochlorothiazide (hydroCHLOROthiazide TABLET) 12.5 mg DAILY PO 05/30/25 10:00 Cyclobenzaprine HCl (Flexeril Tablet) 10 mg TIDP PRN PO FOR MUSCLE SPASM 05/29/25 10:15 Pantoprazole Sodium (Protonix Tablet) 40 mg DAILY PO 05/30/25 10:00 Review of Systems Constitutional: No: Fever, Chills, Sweats, Weakness, Malaise, Other Eyes: No: Pain, Vision change, Conjunctivae inflammation, Eyelid inflammation, Other, Redness ENT: No: Ear pain, Ear discharge, Nose pain, Nose discharge, Nose congestion, Mouth pain, Mouth swelling, Throat pain, Throat swelling, Other Respiratory: No: Cough, Dry, Shortness of breath, SOB with excertion, Wheezing, Hemoptysis, Pleuritic Pain, Sputum, Wheezing, Other Cardiovascular: No: Chest Pain, Palpitations, Orthopnea, Paroxysmal Noc. Dyspne a, Edema, Lt Headedness, Other Gastrointestinal: Nausea, Vomiting; No: Abdominal Pain, Diarrhea, Constipation, Melena, Hematochezia, Other Genitourinary: No Dysuria, No Frequency, No Incontinence, No Hematuria, No Retention, No Other Musculoskeletal: back pain (right flank); No: other, neck pain, shoulder pain, arm pain, hand pain, leg pain, foot pain Skin: No: Rash, Lesions, Jaundice, Bruising, Other Neurological: No: Weakness, Numbness, Incoordination, Change in speech, Confusion, Seizures, Other Allergies: Coded Allergies: Amoxicillin (Verified Allergy, Unknown, 07/21/24) Clavulanic Acid (Verified Allergy, Unknown, 07/21/24) Egg-derived Products (Verified Allergy, Unknown, 07/22/24) UNKNOWN REACTION Ketorolac Tromethamine (Verified Allergy, Unknown, 03/24/16) RASH Vital Signs Vital Signs Date Time Temp Pulse Resp B/P (MAP) Pulse Ox O2 Delivery O2 Flow Rate FiO2 05/29/25 10:15 98.1 105 16 161/110 (127) 94 98.1 Physical Exam Vital Signs Date Time Temp Pulse Resp B/P (MAP) Pulse Ox O2 Delivery O2 Flow Rate FiO2 05/29/25 08:24 98.5 80 18 147/111 (123) 96 98.5 General Appearance: Alert, Oriented X3, Cooperative, moderate distress HEENT: Atraumatic, PERRLA Respiratory: Clear to auscultation, Normal air movement Cardiovascular: Normal S1, Normal S2, No murmurs, Other (SR-ST) Abdominal: Normal bowel sounds, Soft, Other (pelvic pain, right flank pain) Extremities: No clubbing, No cyanosis, No edema, Normal pulses, No tenderness/swelling Skin: No rashes, No breakdown, No significant lesion Neuro: Normal gait, Normal speech, Strength at 5/5 X4 ext, Normal tone, Sensation intact Psych/Mental Status: Mental status NL, Mood NL Labs/Diagnostic Data Labs Test 05/29/25 06:36 Range/Units White Blood Count 16.7 H 4.4-10.8 10^3/uL Red Blood Count 6.53 H 4.5-5.90 10^6/uL Hemoglobin 19.9 H 13.5-17.5 g/dL Hematocrit 57.8 H 41.0-53.0 % Mean Corpuscular Volume 88.6 80.0-100.0 fL Mean Corpuscular Hemoglobin 30.5 28.0-32.0 pg Mean Corpuscular Hemoglobin Concent 34.4 32.0-36.0 g/dL Red Cell Distribution Width 15.1 H 11.8-14.3 % Platelet Count 365 140-450 10^3/uL Mean Platelet Volume 8.1 6.9-10.8 fL Neutrophils (%) (Auto) 76.5 37.0-80.0 % Lymphocytes (%) (Auto) 11.0 10.0-50.0 % Monocytes (%) (Auto) 11.4 0.0-12.0 % Eosinophils (%) (Auto) 0.5 0.0-7.0 % Basophils (%) (Auto) 0.6 0.0-2.0 % Neutrophils # (Auto) 12.8 H 1.6-8.6 10 ^3/uL Lymphocytes # (Auto) 1.8 0.4-5.4 10 ^3/uL Monocytes # (Auto) 1.9 H 0-1.3 10 ^3/uL Eosinophils # (Auto) 0.1 0-0.8 10 ^3/uL Basophils # (Auto) 0.1 0-0.2 10 ^3/uL Nucleated Red Blood Cells 0.8 % Sodium Level 140 136-145 mmol/L Potassium Level 4.2 3.5-5.1 mmol/L Chloride Level 106 98-107 mmol/L Carbon Dioxide Level 22 20-31 mmol/L Anion Gap 12 5-15 Blood Urea Nitrogen 10 9-23 mg/dL Creatinine 1.34 H 0.700-1.30 mg/dL Glomerular Filtration Rate Calc 64 >90 mL/min BUN/Creatinine Ratio 7.5 L 10.0-20.0 Serum Glucose 138 H 74-106 mg/dL Calcium Level 10.2 8.7-10.4 mg/dL Assessment Mild right hydronephrosis secondary to 5 mm proximal right ureteral calculus Plan/Recommendation Expulsive measures Pain control Possible extracorporeal shockwave lithotripsy as inpatient to be arranged when OR time available Plan discussed with: Patient, Other KAT COOLEY MD May 29, 2025 11:44
[2025-05-29] MEDS: METOCLOPRAMIDE HCL 5MG/ml INJ 2ml VIAL IV PRN (16:13)
[2025-05-29 16:58] VITALS: BP 156/93; PULSE 89; RESP 18; TEMP 98.5; O2SAT 98
[2025-05-29] MEDS: TAMSULOSIN HYDROCHLORIDE 0.4 MG CAP PO ONE (18:04)
[2025-05-29] MEDS: LOSARTAN POTASSIUM 50 MG TAB PO SCH (18:05)
[2025-05-29 21:00] VITALS: BP 140/85; PULSE 87; RESP 19; TEMP 98.3; O2SAT 96
[2025-05-29] MEDS: ONDANSETRON HCL 4 MG/2 ML VIAL IV PRN (21:07)
[2025-05-29] MEDS: HYDROcodone-ACET 5/325MG TAB PO PRN (21:07)
[2025-05-30] VITALS (8 sets, daily range): BP systolic 113–159; BP diastolic 70–98; PULSE 74–99; RESP 15–20; TEMP 97.5–98.7; O2SAT 93–97
[2025-05-30] MEDS: MANNITOL FTV 25% 12.5 GM/50 ML 50 ML IV ONE (01:07)
[2025-05-30] MEDS: KETOROLAC TROMETH 30 MG/ML 1ML VIAL IV ONE (02:45)
[2025-05-30] MEDS: SODIUM CHLORIDE 0.9% 1,000 ML IV ONE (03:39)
[2025-05-30 05:39] LABS: Hematocrit 52.9 % (41.0-53.0); Hemoglobin 17.8 g/dL (13.5-17.5); Mean Corpuscular Hemoglobin 30.1 pg (28.0-32.0); Mean Corpuscular Volume 89.6 fL (80.0-100.0); Nucleated Red Blood Cells % 0.1 %
[2025-05-30 05:57] LABS: Alanine Aminotransferase 20 U/L (7-40); Albumin 4.8 g/dL (3.2-4.8); Alkaline Phosphatase 92 U/L (46-116); Anion Gap 13 (5-15); BUN/Creatinine Ratio 8.1 (10.0-20.0); Bilirubin, Total 0.7 mg/dL (0.2-1.0); Blood Urea Nitrogen 10 mg/dL (9-23); Calcium 9.8 mg/dL (8.7-10.4); Carbon Dioxide 24 mmol/L (20-31); Chloride 103 mmol/L (98-107); Glucose 102 mg/dL (74-106); Potassium 3.9 mmol/L (3.5-5.1); Sodium 140 mmol/L (136-145); Total Protein 7.8 g/dL (5.7-8.2)
[2025-05-30] MEDS: HYDROcodone-ACET 10/325MG TAB PO PRN ×2 (09:02→17:55)
[2025-05-30] MEDS: CYCLOBENZAPRINE HCL 10 MG TAB PO PRN (09:02)
[2025-05-30] MEDS: PANTOPRAZOLE 40 MG TAB PO SCH (09:03)
[2025-05-30] MEDS: hydroCHLOROthiazide 25 MG TAB PO SCH (09:05)
[2025-05-30 10:42] LABS: Urine Protein, UAD 1+ (Negative)
--- NOTE | 2025-05-30 11:24 | DVHPN2 ---
Progress Note Date Seen: May 30, 2025 Medical Necessity Reason Pt with a Central, PICC or Fol: No Subjective Patient reports: No new complaints Review of Systems: HEENT:Normal, CVS:Normal, RESPIRATORY:Normal, GI:Normal, :Normal, MSK:Normal, NEURO:Normal Objective vital signs Vital Sign Date Time Temp Pulse Resp B/P (MAP) Pulse Ox O2 Delivery O2 Flow Rate FiO2 05/30/25 09:05 156/96 05/30/25 09:00 97.9 99 19 93 97.9 05/30/25 08:00 Room Air* 0 21 Total Intake and Output 05/29/25 05/29/25 05/30/25 15:00 23:00 07:00 Intake Total 100 ml 0 ml Balance 100 ml 0 ml medications Current Medications Medications Dose Ordered Sig/Jace Route Start Time Stop Time Status Last Admin Dose Admin Ondansetron HCl 4 mg Q4HP PRN IV 05/29/25 09:45 05/30/25 05:38 4 MG Docusate Sodium 100 mg BIDPRN PRN PO 05/29/25 09:45 Acetaminophen 650 mg Q6HP PRN PO 05/29/25 09:45 Ketorolac Tromethamine 15 mg Q6HPRN PRN IV 05/29/25 09:45 06/03/25 09:44 UNV Tamsulosin HCl 0.4 mg QPM PO 05/30/25 18:00 Metoclopramide HCl 10 mg Q6HPRN PRN IV 05/29/25 09:45 05/30/25 09:02 10 MG Losartan Potassium 50 mg DAILY PO 05/29/25 10:00 05/30/25 09:03 50 MG Hydrochlorothiazide 12.5 mg DAILY PO 05/30/25 10:00 05/30/25 09:05 12.5 MG Cyclobenzaprine HCl 10 mg TIDP PRN PO 05/29/25 10:15 05/30/25 09:02 10 MG Pantoprazole Sodium 40 mg DAILY PO 05/30/25 10:00 05/30/25 09:03 40 MG Acetaminophen/ Hydrocodone Bitart 1 tab Q4HP PRN PO 05/30/25 07:15 05/30/25 09:02 1 TAB Examination: GENERAL:Normal, HEENT:Normal, NECK:Normal, LUNGS:Normal, CVS:Normal, ABDOMEN:Normal, MSK:Normal, SKIN:Normal, NEURO:Normal, :Normal laboratory and microbiology Laboratory Tests 05/30/25 04:30 Test 05/30/25 04:30 Range/Units Serum Glucose 102 74-106 mg/dL Problem List/Assessment/Plan Problem List/Assessment/Plan #1 right renal stone with hydronephrosis: ivf, pain meds, eswl planned #2 htn #3 gerd #4 tobacco abuse: advised to quit, refused nicotine replacement- time spent 11 mins #5 sirs likely due to renal stone Plan discussed with: Patient My Orders My Orders Orders - HOLLAND BARRIOS MD Procedure Category Date Status Time Hydrocodone-Acet PHA 05/30/25 Verified 10/325mg Tab (Protem 11:15 NS PHA 05/30/25 Verified 11:15 Hydromorphone PHA 05/30/25 Verified Injection (Dilaudid 11:15 Basic Metabolic Panel LAB 05/31/25 Verified 06:00 Complete Blood Count LAB 05/31/25 Verified 06:00 PTPTT LAB 05/31/25 Verified 04:00 Date of Service: May 30, 2025 Billing Provider: HOLLAND BARRIOS MD Common Visit Codes: [id number] INP/OBS CARE(HIGH) Secondary Visit Codes: [id number] CHNG SMOKING >10MIN HOLLAND BARRIOS MD May 30, 2025 11:24
[2025-05-30] MEDS: SODIUM CHLORIDE 0.9% 1,000 ML IV SCH (11:53)
--- NOTE | 2025-05-30 12:00 | DVH ---
RENAL ULTRASOUND History: HYDRONEPHROSIS. look for ureteral jetting Comparison: 05/29/2025 Technique: Multiple real-time sonographic images of the kidney and bladder were obtained in conjunction with Doppler imaging. Findings: The right kidney measures 11.1 cm and demonstrates [id number] right hydronephrosis. No perinephric edema seen. No calculus seen. The left kidney measures 12 cm and demonstrates no evidence of hydronephrosis, perinephric fluid collection, or shadowing stone. Urinary bladder: Contracted, volume of 42 cc. Right ureteral jet nonvisualized. Impression: [id number] right hydro nephrosis. Right ureteral jet nonvisualized. This is in concordance with Previous CT which demonstrates proximal right ureteral calculus.
[2025-05-30] MEDS: HYDROmorphone HCL 2 MG/ML VL/or syr IV PRN (13:53)
[2025-05-30] MEDS: TAMSULOSIN HYDROCHLORIDE 0.4 MG CAP PO SCH (17:55)
--- NOTE | 2025-05-30 18:28 | DVHPN2 ---
Progress Note - Dictate Date Seen: May 30, 2025 Has the PT tested + for MRSA If YES, has PT been informed?: No Medical Necessity Reason Pt with a Central, PICC or Fol: No vital signs Vital Sign Date Time Temp Pulse Resp B/P (MAP) Pulse Ox O2 Delivery O2 Flow Rate FiO2 05/30/25 16:57 98.3 80 19 113/70 (84) 94 98.3 05/30/25 08:00 Room Air* 0 21 Total Intake and Output 05/29/25 05/29/25 05/30/25 15:00 23:00 07:00 Intake Total 100 ml 0 ml Balance 100 ml 0 ml medications Current Medications Medications Dose Ordered Sig/Jace Route Start Time Stop Time Status Last Admin Dose Admin Ondansetron HCl 4 mg Q4HP PRN IV 05/29/25 09:45 05/30/25 13:48 4 MG Docusate Sodium 100 mg BIDPRN PRN PO 05/29/25 09:45 Acetaminophen 650 mg Q6HP PRN PO 05/29/25 09:45 Ketorolac Tromethamine 15 mg Q6HPRN PRN IV 05/29/25 09:45 06/03/25 09:44 UNV Tamsulosin HCl 0.4 mg QPM PO 05/30/25 18:00 05/30/25 17:55 0.4 MG Metoclopramide HCl 10 mg Q6HPRN PRN IV 05/29/25 09:45 05/30/25 17:48 10 MG Losartan Potassium 50 mg DAILY PO 05/29/25 10:00 05/30/25 09:03 50 MG Cyclobenzaprine HCl 10 mg TIDP PRN PO 05/29/25 10:15 05/30/25 17:55 10 MG Pantoprazole Sodium 40 mg DAILY PO 05/30/25 10:00 05/30/25 09:03 40 MG Acetaminophen/ Hydrocodone Bitart 1 tab Q6HP PRN PO 05/30/25 11:15 05/30/25 17:55 1 TAB Sodium Chloride 1,000 ml @ 100 mls/hr Q10H IV 05/30/25 11:15 05/30/25 11:53 100 MLS/HR Hydromorphone HCl 1 mg Q4HPRN PRN IV 05/30/25 11:15 05/30/25 13:53 1 MG objective Rates his right flank pain 01/18 PATIENT: CLINT LAN ACCT: [id number] UNIT: [id number] : 1975 LOC: [facility] [place] ROOM / BED: [facility] / B AGE / SEX: 50 / M ADM STATUS: ADM IN SERVICE 1045 ORDERING PHYSICIAN: KAT COOLEY MD PROCEDURE(s): KIDUS - KIDNEY REASON: HYDRONEPHROSIS. look for ureteral jetting ORDER NUMBER(s): [id number], ACCESSION NUMBER(s): [id number] RENAL ULTRASOUND History: HYDRONEPHROSIS. look for ureteral jetting Comparison: 05/29/2025 Technique: Multiple real-time sonographic images of the kidney and bladder were obtained in conjunction with Doppler imaging. Findings: The right kidney measures 11.1 cm and demonstrates [id number] right hydronephrosis. No perinephric edema seen. No calculus seen. The left kidney measures 12 cm and demonstrates no evidence of hydronephrosis, perinephric fluid collection, or shadowing stone. Urinary bladder: Contracted, volume of 42 cc. Right ureteral jet nonvisualized. Impression: Vaiz-yn-mzsxmwwf right hydro nephrosis. Right ureteral jet nonvisualized. This is in concordance with Previous CT which demonstrates proximal right ureteral calculus. ATED BY: CHRISTOPHER COX MD DICTATED DATE/TIME: 05/30/25 1203 SIGNED BY: CHRISTOPHER COX MD SIGNED DATE/TIME: 05/30/25 1203 CC: laboratory and microbiology Laboratory Tests 05/30/25 04:30 Test 05/30/25 04:30 Range/Units Serum Glucose 102 74-106 mg/dL Assessment/Plan Mild right hydronephrosis secondary to 5 mm proximal right ureteral calculus --> moderate right hydronephrosis Patient scheduled for cystoscopy with right ureteral stent placement and right ESWL 06/01/25 Plan discussed with: Patient, Other KAT COOLEY MD May 30, 2025 18:28
[2025-05-30 23:22] LABS: INR 1.02 (0.9-1.15); Partial Thromboplastin Time 27.4 SEC (24.5-34.5); Prothrombin Time 10.8 sec (9.3-11.8)
[2025-05-31] VITALS (7 sets, daily range): BP systolic 105–148; BP diastolic 69–89; PULSE 67–111; RESP 17–93; TEMP 97.6–99.3; O2SAT 91–96
--- NOTE | 2025-05-31 04:57 | ECG ---
[facility] Test Date: 2025-05-31 Test Time: 04:53:30 Pat Name: CLINT LAN Department: Room: 0281 B Gender: M [employer] T[employer]: jose : 1975 Requested By: HOLLAND BARRIOS Order Number: [id number] Reading MD: Chacho Lizama Measurements Intervals [place] Rate: 77 P: 65 VA: 122 QRS: 66 QRSD: 87 T: 62 QT: 381 QTc: 432 Interpretive Statements Sinus rhythm Baseline wander in lead(s) V6 Electronically Signed On 05-31-2025 11:40:29 PST by Chacho Lizama Please click the below link to view image of tracing.
[2025-05-31 06:46] LABS: Mean Corpuscular Volume 89.8 fL (80.0-100.0); Nucleated Red Blood Cells % 0.1 %
[2025-05-31 06:49] LABS: Hematocrit 51.1 % (41.0-53.0); Hemoglobin 17.2 g/dL (13.5-17.5); INR 0.99 (0.9-1.15); Mean Corpuscular Hemoglobin 30.3 pg (28.0-32.0); Partial Thromboplastin Time 27.4 SEC (24.5-34.5); Prothrombin Time 10.5 sec (9.3-11.8)
[2025-05-31 07:02] LABS: Anion Gap 12 (5-15); Carbon Dioxide 24 mmol/L (20-31)
[2025-05-31 07:04] LABS: Calcium 9.0 mg/dL (8.7-10.4)
[2025-05-31 07:08] LABS: BUN/Creatinine Ratio 7.5 (10.0-20.0); Blood Urea Nitrogen 10 mg/dL (9-23)
[2025-05-31 07:11] LABS: Chloride 105 mmol/L (98-107); Glucose 74 mg/dL (74-106); Potassium 3.9 mmol/L (3.5-5.1); Sodium 141 mmol/L (136-145)
--- NOTE | 2025-05-31 07:59 | DVH ---
INDICATION: PRE OP/pain TECHNIQUE: Frontal view of the chest. COMPARISON: None FINDINGS: . The heart and mediastinal contours are grossly unremarkable. There is no evidence of pleural disease. The lungs are clear. The bony structures of the chest are intact without fracture. IMPRESSION: 1. No evidence of acute disease.
--- NOTE | 2025-05-31 12:52 | DVH ---
Date: 05/31/2025 12:01 PM Examination: XY KUB ABDOMEN SINGLE VIEW History: right ureteral stone Comparison: None TECHNIQUE: Frontal views of the abdomen was obtained. FINDINGS: Bowel gas pattern is unremarkable. The lung bases are unremarkable. No acute osseous abnormality identified. IMPRESSION: Nonobstructive bowel gas pattern. There is a 2 mm radiopaque calculus possibly seen in the right mid ureter at the level of the right aspect of the L4 vertebral body.
[2025-05-31 15:48] LABS: Urine Protein, UAD Negative (Negative)
--- NOTE | 2025-05-31 16:04 | DVHPN2 ---
Progress Note Date Seen: May 31, 2025 Has the PT tested + for MRSA If YES, has PT been informed?: No Medical Necessity Reason Pt with a Central, PICC or Fol: No Subjective Patient reports: No new complaints Review of Systems: HEENT:Normal, CVS:Normal, RESPIRATORY:Normal, GI:Normal, :Normal, MSK:Normal, NEURO:Normal Objective vital signs Vital Sign Date Time Temp Pulse Resp B/P (MAP) Pulse Ox O2 Delivery O2 Flow Rate FiO2 05/31/25 15:50 79 20 136/74 05/31/25 12:30 98.9 93 98.9 05/31/25 08:00 Room Air* 0 21 Total Intake and Output 05/30/25 05/30/25 05/31/25 15:00 23:00 07:00 Intake Total 1500 ml 400 ml Output Total 850 ml 150 ml Balance 650 ml 250 ml medications Current Medications Medications Dose Ordered Sig/Jace Route Start Time Stop Time Status Last Admin Dose Admin Ondansetron HCl 4 mg Q4HP PRN IV 05/29/25 09:45 05/31/25 15:49 4 MG Docusate Sodium 100 mg BIDPRN PRN PO 05/29/25 09:45 Acetaminophen 650 mg Q6HP PRN PO 05/29/25 09:45 Ketorolac Tromethamine 15 mg Q6HPRN PRN IV 05/29/25 09:45 06/03/25 09:44 UNV Tamsulosin HCl 0.4 mg QPM PO 05/30/25 18:00 05/30/25 17:55 0.4 MG Metoclopramide HCl 10 mg Q6HPRN PRN IV 05/29/25 09:45 05/30/25 17:48 10 MG Losartan Potassium 50 mg DAILY PO 05/29/25 10:00 05/31/25 10:44 50 MG Cyclobenzaprine HCl 10 mg TIDP PRN PO 05/29/25 10:15 05/30/25 17:55 10 MG Pantoprazole Sodium 40 mg DAILY PO 05/30/25 10:00 05/31/25 10:44 40 MG Acetaminophen/ Hydrocodone Bitart 1 tab Q6HP PRN PO 05/30/25 11:15 05/30/25 17:55 1 TAB Sodium Chloride 1,000 ml @ 100 mls/hr Q10H IV 05/30/25 11:15 05/31/25 07:15 100 MLS/HR Hydromorphone HCl 1 mg Q4HPRN PRN IV 05/30/25 11:15 05/31/25 15:50 1 MG Examination: GENERAL:Normal, HEENT:Normal, NECK:Normal, LUNGS:Normal, CVS:Normal, ABDOMEN:Normal, MSK:Normal, SKIN:Normal, NEURO:Normal, :Normal laboratory and microbiology Laboratory Tests 05/31/25 05:50 Test 05/31/25 05:50 Range/Units Serum Glucose 74 74-106 mg/dL Problem List/Assessment/Plan Problem List/Assessment/Plan #1 right renal stone with hydronephrosis: ivf, pain meds, eswl planned for am #2 htn #3 gerd #4 tobacco abuse: advised to quit, refused nicotine replacement- time spent 11 mins #5 sirs likely due to renal stone Plan discussed with: Patient My Orders My Orders Orders - HOLLAND BARRIOS MD Procedure Category Date Status Time Electrocardigram EKG 05/31/25 Resulted 04:56 Chest Portable XY 05/31/25 Resulted 06:48 Date of Service: May 31, 2025 Billing Provider: HOLLAND BARRIOS MD Common Visit Codes: [id number] INP/OBS CARE(HIGH) HOLLAND BARRIOS MD May 31, 2025 16:04
[2025-05-31] MEDS ORDERED: HYDROmorphone HCL 2 MG/ML VL/or syr IV PRN (16:15)
[2025-06-01] VITALS (9 sets, daily range): BP systolic 128–153; BP diastolic 76–96; PULSE 73–111; RESP 16–22; TEMP 97.8–98.8; O2SAT 93–100
[2025-06-01 07:27] LABS: Hematocrit 50.6 % (41.0-53.0); Hemoglobin 17.2 g/dL (13.5-17.5); Mean Corpuscular Hemoglobin 30.4 pg (28.0-32.0); Mean Corpuscular Volume 89.3 fL (80.0-100.0); Nucleated Red Blood Cells % 0.0 %
[2025-06-01 07:34] LABS: Potassium 4.2 mmol/L (3.5-5.1); Sodium 143 mmol/L (136-145)
[2025-06-01] MEDS ORDERED: MEPERIDINE HCL (25 MG/ML) 1ML VIAL ONE ×2 (07:34→08:12)
[2025-06-01 07:35] LABS: Anion Gap 15 (5-15); Calcium 9.2 mg/dL (8.7-10.4); Carbon Dioxide 21 mmol/L (20-31)
[2025-06-01] MEDS ORDERED: MIDAZOLAM HCL 2MG/2ML 2ml VIAL (1mg/ml) ONE (07:35)
[2025-06-01] MEDS ORDERED: fentaNYL CITRATE 100 MCG/2 ML VL ONE (07:35)
[2025-06-01 07:39] LABS: Chloride 107 mmol/L (98-107)
[2025-06-01 07:40] LABS: BUN/Creatinine Ratio 8.4 (10.0-20.0); Blood Urea Nitrogen 10 mg/dL (9-23)
[2025-06-01 07:41] LABS: Glucose 62 mg/dL (74-106)
[2025-06-01] MEDS ORDERED: ETOMIDATE (2MG/ML) 20ML VIAL IV ONE (07:58)
[2025-06-01] MEDS: CIPROFLOXACIN 400MG/200ML 200 ML IV ONE (08:00)
[2025-06-01] MEDS ORDERED: hydrALAZINE HCL 20 MG/ML VL IV PRN (08:15)
[2025-06-01] MEDS ORDERED: MIDAZOLAM HCL 2MG/2ML 2ml VIAL (1mg/ml) IV PRN (08:15)
[2025-06-01] MEDS ORDERED: HYDROmorphone HCL 2 MG/ML VL/or syr IV PRN (08:15)
[2025-06-01] MEDS ORDERED: ONDANSETRON HCL 4 MG/2 ML VIAL IV PRN (08:15)
--- NOTE | 2025-06-01 08:38 | DVHNC2 ---
Procedure - OPERATIVE REPORT Pre-op. Diagnosis: Ureteral Stone - RIGHT Hydronephrosis - RIGHT Flank Pain - RIGHT Post-op. Diagnosis: Same as pre-op diagnosis Operation: Extracorporeal Shockwave Lithotripsy - RIGHT Cystoscopy, Ureteral stent placement - RIGHT Anesthesia: General Indications: Informed Consent: Options were discussed. Treatments can include conservative therapy, Extra-corporeal shockwave therapy (ESWL), Ureteroscopy with laser lithotripsy vs extraction, PCNL (percutaneous nephrolithotomy); with or without the use of Stents or retrograde pyelography. Corresponding advantages and disadvantages were also discussed. Questions were addressed. Patient wishes to proceed with right ESWL and cystoscopy with right ureteral stent placement. Risks and benefits of the surgery were reviewed with patient which include but are not limited to infection, bleeding, urosepsis, renal hemorrhage/hematoma formation, ureteral perforation, ureteral stricture formation and need for further surgery if stone does not break, ureteral obstruction from stone fragments, cardiac arrthymia and risks of anesthesia. Despite these risks, patient wishes to proceed with the surgery. Details of Procedure: Under satisfactory anesthesia, the patient was positioned on the lithotripsy table. Using fluoroscopy the stone was localized. Patient was then positioned in the dorsal lithotomy and cystoscopy was performed. The right ureteral orifice was cannulated with a sensoer tip guidewire and advanced into the right renal pelvis under fluroscopy. A 5x24 PL right Ureteral stent was then placed over the wire under Fluoroscopic and cystoscopic guidance. A good curl was seen in the kidney under fluorscopy and a good curl was seen in the bladder under direct visualization. The bladder was emptied and the cystoscope was taken out. We then positioned the patient accordingly, identified the stone and began extra-corporeal shockwave lithotripsy. Starting at low energy levels, shockwave treatment was commenced. The energy level was gradually increased and stone was fragmented. The patient was then taken off the lithotripsy table and sent to recovery room in stable condition. Specimens: None Complications: None Findings: Stone Laterality: Right Stone Location: Proximal right ureteral stone, 8 mm Shocks Delivered: 3000 Max Power settin Fragmentation Quality: Well Ureteral stent size & length: 5x24 PL right ureteral stent Notes: Stent removal in 2-3 weeks F/U in 2-3 weeks with KAT SHARPE MD Jun 01, 2025 08:38
--- NOTE | 2025-06-01 10:27 | DVHPN2 ---
Reviewed: Care Plan, H&P, Labs, Medications, Previous Orders, Radiology Changes from previous H/P or p: No Changes Eyes: No Pain, No Vision change, No Conjunctivae inflammation, No Eyelid inflammation, No Other, No Redness ENT: No Ear pain, No Ear discharge, No Nose pain, No Nose discharge, No Nose congestion, No Mouth pain, No Mouth swelling, No Throat pain, No Throat swelling, No Other Cardiovascular: No Chest Pain, No Palpitations, No Orthopnea, No Paroxysmal Noc. Dyspnea, No Edema, No Lt Headedness, No Other Respiratory: No Cough, No Dry, No Shortness of breath, No SOB with excertion, No Wheezing, No Hemoptysis, No Pleuritic Pain, No Sputum, No Other Gastrointestinal: Nausea, Vomiting; No Abdominal Pain, No Diarrhea, No Constipation, No Melena, No Hematochezia, No Other Genitourinary: No Dysuria, No Frequency, No Incontinence, No Hematuria, No Retention, No Other Musculoskeletal: No other, No neck pain, No shoulder pain, No arm pain; back pain (right flank); No hand pain, No leg pain, No foot pain Skin: No Rash, No Lesions, No Jaundice, No Bruising, No Other Objective Vitals Vital Signs Date Time Temp Pulse Resp B/P (MAP) Pulse Ox O2 Delivery O2 Flow Rate FiO2 06/01/25 09:54 153/96 06/01/25 09:40 82 16 98 06/01/25 09:18 Room Air 0 98 06/01/25 05:00 98.0 98.0 Intake/Output Intake and Output 06/01/25 07:00 Intake Total 100 ml Output Total 1600 ml Balance -1500 ml Intake Oral 0 ml IV Total 100 ml Output Urine Total 1600 ml Medications Current Medications Medications Dose Ordered Sig/Jace Route Start Time Stop Time Status Last Admin Dose Admin Ondansetron HCl 4 mg Q4HP PRN IV 05/29/25 09:45 05/31/25 15:49 4 MG Docusate Sodium 100 mg BIDPRN PRN PO 05/29/25 09:45 Acetaminophen 650 mg Q6HP PRN PO 05/29/25 09:45 Ketorolac Tromethamine 15 mg Q6HPRN PRN IV 05/29/25 09:45 06/03/25 09:44 UNV Tamsulosin HCl 0.4 mg QPM PO 05/30/25 18:00 05/31/25 17:25 0.4 MG Metoclopramide HCl 10 mg Q6HPRN PRN IV 05/29/25 09:45 05/30/25 17:48 10 MG Losartan Potassium 50 mg DAILY PO 05/29/25 10:00 06/01/25 09:54 50 MG Cyclobenzaprine HCl 10 mg TIDP PRN PO 05/29/25 10:15 05/30/25 17:55 10 MG Pantoprazole Sodium 40 mg DAILY PO 05/30/25 10:00 06/01/25 09:54 40 MG Acetaminophen/ Hydrocodone Bitart 1 tab Q6HP PRN PO 05/30/25 11:15 06/01/25 09:54 1 TAB Sodium Chloride 1,000 ml @ 100 mls/hr Q10H IV 05/30/25 11:15 06/01/25 03:15 100 MLS/HR Hydromorphone HCl 0.5 mg Q4HPRN PRN IV 05/31/25 16:15 Laboratory Results Laboratory Tests 06/01/25 06:12 Chemistry Test 06/01/25 06:12 Calcium Level 9.2 mg/dL (8.7-10.4) Urinalysis Test 05/31/25 12:00 Urine Color Yellow (Yellow) Urine Clarity Clear (Clear) Urine pH 5.5 (5.0-9.0) Urine Specific [place] 1.015 (1.001-1.035) Urine Protein Negative (Negative) Urine Ketones 4+ (Negative) H Urine Blood 3+ /uL (Negative) H Urine Nitrite Negative (Negative) Urine Bilirubin Negative (Negative) Urine Urobilinogen Normal mg/dL (Negative) Urine Leukocyte Esterase Trace /uL (Negative) Urine RBC 21 /hpf (0 - 3) Urine Microscopic WBC 9 /HPF (0-3) H Urine Squamous Epithelial Cells None seen /hpf (<5) Urine Bacteria None seen /hpf (None Seen) Urine Mucus Few (None Seen) Urine Glucose Normal mg/dL (Normal) Labs and/or images reviewed: Labs reviewed by me, Image(s) reviewed by me Assessment/Plan Assessment/Plan #1 right renal stone with hydronephrosis: ivf, pain meds, Status post cystoscopy right ESWL and ureteral stent placement by Urology #2 htn #3 gerd #4 tobacco abuse: advised to quit, refused nicotine replacement- time spent 11 mins #5 Sepsis secondary to urinary tract infection: Urine cultures Rocephin Per patient [place] not working requesting Dilaudid Time Spent 45 minutes Plan discussed with: Patient Date of Service: Jun 01, 2025 Billing Provider: RICKIE KING MD Common Visit Codes: [id number] INP/OBS CARE(HIGH) RICKIE KING MD Jun 01, 2025 10:27
[2025-06-01] MEDS: HYDROmorphone HCL 2 MG/ML VL/or syr IV PRN (11:37)
[2025-06-02 05:00] VITALS: BP 133/86; PULSE 79; RESP 18; TEMP 97.9; O2SAT 94
[2025-06-02 08:00] VITALS: PULSE 98; RESP 17; O2SAT 95
[2025-06-02 09:00] VITALS: BP 119/82; PULSE 98; RESP 17; TEMP 98.4; O2SAT 92
--- NOTE | 2025-06-02 10:01 | DVHPN2 ---
Reviewed: Care Plan, H&P, Labs, Medications, Previous Orders, Radiology Changes from previous H/P or p: No Changes Eyes: No Pain, No Vision change, No Conjunctivae inflammation, No Eyelid inflammation, No Other, No Redness ENT: No Ear pain, No Ear discharge, No Nose pain, No Nose discharge, No Nose congestion, No Mouth pain, No Mouth swelling, No Throat pain, No Throat swelling, No Other Cardiovascular: No Chest Pain, No Palpitations, No Orthopnea, No Paroxysmal Noc. Dyspnea, No Edema, No Lt Headedness, No Other Respiratory: No Cough, No Dry, No Shortness of breath, No SOB with excertion, No Wheezing, No Hemoptysis, No Pleuritic Pain, No Sputum, No Other Gastrointestinal: Nausea, Vomiting; No Abdominal Pain, No Diarrhea, No Constipation, No Melena, No Hematochezia, No Other Genitourinary: No Dysuria, No Frequency, No Incontinence, No Hematuria, No Retention, No Other Musculoskeletal: No other, No neck pain, No shoulder pain, No arm pain; back pain (right flank); No hand pain, No leg pain, No foot pain Skin: No Rash, No Lesions, No Jaundice, No Bruising, No Other Objective Vitals Vital Signs Date Time Temp Pulse Resp B/P (MAP) Pulse Ox O2 Delivery O2 Flow Rate FiO2 06/02/25 09:19 132/81 06/02/25 09:00 98.4 98 17 92 98.4 06/01/25 20:00 Room Air* 0 21 Intake/Output Intake and Output 06/02/25 07:00 Intake Total 1690 ml Output Total 2200 ml Balance -510 ml Intake Oral 1440 ml IV Total 250 ml Output Urine Total 2200 ml Medications Current Medications Medications Dose Ordered Sig/Jace Route Start Time Stop Time Status Last Admin Dose Admin Ondansetron HCl 4 mg Q4HP PRN IV 05/29/25 09:45 06/01/25 21:39 4 MG Docusate Sodium 100 mg BIDPRN PRN PO 05/29/25 09:45 Acetaminophen 650 mg Q6HP PRN PO 05/29/25 09:45 Ketorolac Tromethamine 15 mg Q6HPRN PRN IV 05/29/25 09:45 06/03/25 09:44 UNV Tamsulosin HCl 0.4 mg QPM PO 05/30/25 18:00 06/01/25 17:12 0.4 MG Metoclopramide HCl 10 mg Q6HPRN PRN IV 05/29/25 09:45 05/30/25 17:48 10 MG Losartan Potassium 50 mg DAILY PO 05/29/25 10:00 06/02/25 09:19 50 MG Cyclobenzaprine HCl 10 mg TIDP PRN PO 05/29/25 10:15 05/30/25 17:55 10 MG Pantoprazole Sodium 40 mg DAILY PO 05/30/25 10:00 06/02/25 09:20 40 MG Sodium Chloride 1,000 ml @ 100 mls/hr Q10H IV 05/30/25 11:15 06/02/25 09:19 100 MLS/HR Ceftriaxone Sodium 50 ml @ 100 mls/hr DAILY@09 IV 06/01/25 11:07 06/02/25 09:19 100 MLS/HR Hydromorphone HCl 2 mg Q4HPRN PRN IV 06/01/25 10:30 06/02/25 02:44 2 MG Laboratory Results Laboratory Tests 06/01/25 06:12 Urinalysis Test 05/31/25 12:00 Urine Color Yellow (Yellow) Urine Clarity Clear (Clear) Urine pH 5.5 (5.0-9.0) Urine Specific [place] 1.015 (1.001-1.035) Urine Protein Negative (Negative) Urine Ketones 4+ (Negative) H Urine Blood 3+ /uL (Negative) H Urine Nitrite Negative (Negative) Urine Bilirubin Negative (Negative) Urine Urobilinogen Normal mg/dL (Negative) Urine Leukocyte Esterase Trace /uL (Negative) Urine RBC 21 /hpf (0 - 3) Urine Microscopic WBC 9 /HPF (0-3) H Urine Squamous Epithelial Cells None seen /hpf (<5) Urine Bacteria None seen /hpf (None Seen) Urine Mucus Few (None Seen) Urine Glucose Normal mg/dL (Normal) Microbiology Microbiology Date/Time Source Procedure Growth Status 05/31/25 12:00 Voided Urine Urine Culture - Preliminary Resulted Labs and/or images reviewed: Labs reviewed by me, Image(s) reviewed by me Assessment/Plan Assessment/Plan #1 right renal stone with hydronephrosis: ivf, pain meds, Status post cystoscopy right ESWL and ureteral stent placement by Urology #2 htn #3 gerd #4 tobacco abuse: advised to quit, refused nicotine replacement- time spent 11 mins #5 Sepsis secondary to urinary tract infection: Urine cultures contaminated: Continue Rocephin Per patient [place] not working requesting Dilaudid Time Spent 48 minutes Plan discussed with: Patient My Orders Orders - RICKIE KING MD Procedure Category Date Status Time Urine Bacterial EMMANUEL 06/01/25 Logged Culture 10:23 Hydromorphone PHA 06/01/25 In Process Injection (Dilaudid 10:30 Ceftriaxone 1gm/50ml PHA 06/01/25 In Process (Rocephin) 11:07 Date of Service: Jun 02, 2025 Billing Provider: RICKIE KING MD Common Visit Codes: [id number] INP/OBS CARE(HIGH) RICKIE KING MD Jun 02, 2025 10:01
[2025-06-02 12:35] VITALS: BP 140/90; PULSE 92; RESP 20; TEMP 98; O2SAT 90
[2025-06-02 16:48] VITALS: BP 142/88; PULSE 90; RESP 17; TEMP 98.3; O2SAT 97
[2025-06-02 21:00] VITALS: BP 103/75; PULSE 103; RESP 18; TEMP 97.8; O2SAT 93
[2025-06-03] VITALS (8 sets, daily range): BP systolic 113–143; BP diastolic 76–101; PULSE 67–99; RESP 17–20; TEMP 97.8–98.8; O2SAT 90–95
[2025-06-03] MEDS: DOCUSATE SOD 100 MG CAP PO PRN (09:21)
--- NOTE | 2025-06-03 11:18 | DVHPN2 ---
Reviewed: Care Plan, H&P, Labs, Medications, Previous Orders, Radiology Changes from previous H/P or p: No Changes Eyes: No Pain, No Vision change, No Conjunctivae inflammation, No Eyelid inflammation, No Other, No Redness ENT: No Ear pain, No Ear discharge, No Nose pain, No Nose discharge, No Nose congestion, No Mouth pain, No Mouth swelling, No Throat pain, No Throat swelling, No Other Cardiovascular: No Chest Pain, No Palpitations, No Orthopnea, No Paroxysmal Noc. Dyspnea, No Edema, No Lt Headedness, No Other Respiratory: No Cough, No Dry, No Shortness of breath, No SOB with excertion, No Wheezing, No Hemoptysis, No Pleuritic Pain, No Sputum, No Other Gastrointestinal: Nausea, Vomiting; No Abdominal Pain, No Diarrhea, No Constipation, No Melena, No Hematochezia, No Other Genitourinary: No Dysuria, No Frequency, No Incontinence, No Hematuria, No Retention, No Other Musculoskeletal: No other, No neck pain, No shoulder pain, No arm pain; back pain (right flank); No hand pain, No leg pain, No foot pain Skin: No Rash, No Lesions, No Jaundice, No Bruising, No Other Objective Vitals Vital Signs Date Time Temp Pulse Resp B/P (MAP) Pulse Ox O2 Delivery O2 Flow Rate FiO2 06/03/25 09:53 66 18 128/84 06/03/25 09:03 97.8 94 97.8 06/03/25 08:00 Room Air* 0 21 Intake/Output Intake and Output 06/03/25 07:00 Intake Total 1300 ml Output Total 2920 ml Balance -1620 ml Intake Oral 1250 ml IV Total 50 ml Output Urine Total 2920 ml Medications Current Medications Medications Dose Ordered Sig/Jace Route Start Time Stop Time Status Last Admin Dose Admin Ondansetron HCl 4 mg Q4HP PRN IV 05/29/25 09:45 06/03/25 09:11 4 MG Docusate Sodium 100 mg BIDPRN PRN PO 05/29/25 09:45 06/03/25 09:21 100 MG Acetaminophen 650 mg Q6HP PRN PO 05/29/25 09:45 Ketorolac Tromethamine 15 mg Q6HPRN PRN IV 05/29/25 09:45 06/03/25 09:44 UNV Tamsulosin HCl 0.4 mg QPM PO 05/30/25 18:00 06/02/25 17:35 0.4 MG Metoclopramide HCl 10 mg Q6HPRN PRN IV 05/29/25 09:45 05/30/25 17:48 10 MG Losartan Potassium 50 mg DAILY PO 05/29/25 10:00 06/03/25 09:11 50 MG Cyclobenzaprine HCl 10 mg TIDP PRN PO 05/29/25 10:15 05/30/25 17:55 10 MG Pantoprazole Sodium 40 mg DAILY PO 05/30/25 10:00 06/03/25 09:11 40 MG Sodium Chloride 1,000 ml @ 100 mls/hr Q10H IV 05/30/25 11:15 06/03/25 05:15 100 MLS/HR Ceftriaxone Sodium 50 ml @ 100 mls/hr DAILY@09 IV 06/01/25 11:07 06/03/25 09:11 100 MLS/HR Hydromorphone HCl 2 mg Q4HPRN PRN IV 06/01/25 10:30 06/03/25 09:23 2 MG Laboratory Results Laboratory Tests 06/01/25 06:12 Urinalysis Test 05/31/25 12:00 Urine Color Yellow (Yellow) Urine Clarity Clear (Clear) Urine pH 5.5 (5.0-9.0) Urine Specific [place] 1.015 (1.001-1.035) Urine Protein Negative (Negative) Urine Ketones 4+ (Negative) H Urine Blood 3+ /uL (Negative) H Urine Nitrite Negative (Negative) Urine Bilirubin Negative (Negative) Urine Urobilinogen Normal mg/dL (Negative) Urine Leukocyte Esterase Trace /uL (Negative) Urine RBC 21 /hpf (0 - 3) Urine Microscopic WBC 9 /HPF (0-3) H Urine Squamous Epithelial Cells None seen /hpf (<5) Urine Bacteria None seen /hpf (None Seen) Urine Mucus Few (None Seen) Urine Glucose Normal mg/dL (Normal) Microbiology Microbiology Date/Time Source Procedure Growth Status 05/31/25 12:00 Voided Urine Urine Culture - Preliminary Resulted Labs and/or images reviewed: Labs reviewed by me, Image(s) reviewed by me Assessment/Plan Assessment/Plan #1 right renal stone with hydronephrosis: ivf, pain meds, Status post cystoscopy right ESWL and ureteral stent placement by Urology #2 htn #3 gerd #4 tobacco abuse: Counseling for 20 minutes refused nicotine patch #5 Sepsis secondary to urinary tract infection: Urine cultures contaminated: Continue Rocephin Per patient [place] not working requesting Dilaudid Time Spent 48 minutes Patient tells me normally he sees strings coming out of the penis to pull out the ureteral stents the past, he does not see them now, he wants to talk to urologist before discharge, Dr Dougherty was informed. Plan discussed with: Patient Date of Service: Jun 03, 2025 Billing Provider: RICKIE KING MD Common Visit Codes: [id number] INP/OBS CARE(HIGH) RICKIE KING MD Jun 03, 2025 11:18
[2025-06-04 00:50] VITALS: BP 149/89; PULSE 76; RESP 19; TEMP 98; O2SAT 92
[2025-06-04 05:23] VITALS: BP 116/87; PULSE 70; RESP 20; TEMP 98; O2SAT 91
[2025-06-04 06:32] LABS: Hematocrit 48.5 % (41.0-53.0); Hemoglobin 16.7 g/dL (13.5-17.5); Mean Corpuscular Hemoglobin 30.4 pg (28.0-32.0); Mean Corpuscular Volume 88.3 fL (80.0-100.0); Nucleated Red Blood Cells % 0.1 %
[2025-06-04 06:46] LABS: Alanine Aminotransferase 26 U/L (7-40); Albumin 3.6 g/dL (3.2-4.8); Alkaline Phosphatase 82 U/L (46-116); Anion Gap 11 (5-15); BUN/Creatinine Ratio 8.9 (10.0-20.0); Calcium 9.1 mg/dL (8.7-10.4); Carbon Dioxide 26 mmol/L (20-31); Chloride 107 mmol/L (98-107); Glucose 76 mg/dL (74-106); Potassium 4.1 mmol/L (3.5-5.1); Sodium 144 mmol/L (136-145); Total Protein 6.2 g/dL (5.7-8.2)
[2025-06-04 06:47] LABS: Bilirubin, Total 0.4 mg/dL (0.2-1.0); Blood Urea Nitrogen 8 mg/dL (9-23)
[2025-06-04] MEDS: MANNITOL FTV 25% 12.5 GM/50 ML 50 ML IV ONE (07:37)
[2025-06-04] MEDS: SODIUM CHLORIDE 0.9% 1,000 ML IV ONE (07:37)
[2025-06-04 08:00] VITALS: PULSE 77; RESP 20; O2SAT 95
[2025-06-04 09:00] VITALS: BP 137/100; PULSE 77; RESP 20; TEMP 98.1; O2SAT 95
--- NOTE | 2025-06-04 11:50 | DVHDS2 ---
Discharge Summary Date of Admission May 29, 2025 at 09:40 Date of Discharge: Jun 04, 2025 Labs/Diagnostic Data: Laboratory Results Test 06/04/25 04:40 05/31/25 12:00 05/31/25 05:50 White Blood Count 9.0 10^3/uL (4.4-10.8) Red Blood Count 5.50 10^6/uL (4.5-5.90) Hemoglobin 16.7 g/dL (13.5-17.5) Hematocrit 48.5 % (41.0-53.0) Mean Corpuscular Volume 88.3 fL (80.0-100.0) Mean Corpuscular Hemoglobin 30.4 pg (28.0-32.0) Mean Corpuscular Hemoglobin Concent 34.4 g/dL (32.0-36.0) Red Cell Distribution Width 15.1 % (11.8-14.3) Platelet Count 321 10^3/uL (140-450) Mean Platelet Volume 9.1 fL (6.9-10.8) Neutrophils (%) (Auto) 62.1 % (37.0-80.0) Lymphocytes (%) (Auto) 23.3 % (10.0-50.0) Monocytes (%) (Auto) 11.9 % (0.0-12.0) Eosinophils (%) (Auto) 1.9 % (0.0-7.0) Basophils (%) (Auto) 0.8 % (0.0-2.0) Neutrophils # (Auto) 5.6 10 ^3/uL (1.6-8.6) Lymphocytes # (Auto) 2.1 10 ^3/uL (0.4-5.4) Monocytes # (Auto) 1.1 10 ^3/uL (0-1.3) Eosinophils # (Auto) 0.2 10 ^3/uL (0-0.8) Basophils # (Auto) 0.1 10 ^3/uL (0-0.2) Nucleated Red Blood Cells 0.1 % Sodium Level 144 mmol/L (136-145) Potassium Level 4.1 mmol/L (3.5-5.1) Chloride Level 107 mmol/L (98-107) Carbon Dioxide Level 26 mmol/L (20-31) Anion Gap 11 (5-15) Blood Urea Nitrogen 8 mg/dL (9-23) Creatinine 0.90 mg/dL (0.700-1.30) Glomerular Filtration Rate Calc 103 mL/min (>90) BUN/Creatinine Ratio 8.9 (10.0-20.0) Serum Glucose 76 mg/dL (74-106) Calcium Level 9.1 mg/dL (8.7-10.4) Total Bilirubin 0.4 mg/dL (0.2-1.0) Aspartate Amino Transferase (AST) 21 U/L (13-40) Alanine Aminotransferase (ALT) 26 U/L (7-40) Alkaline Phosphatase 82 U/L (46-116) Total Protein 6.2 g/dL (5.7-8.2) Albumin 3.6 g/dL (3.2-4.8) Urine Color Yellow (Yellow) Urine Clarity Clear (Clear) Urine pH 5.5 (5.0-9.0) Urine Specific [place] 1.015 (1.001-1.035) Urine Protein Negative (Negative) Urine Ketones 4+ (Negative) Urine Blood 3+ /uL (Negative) Urine Nitrite Negative (Negative) Urine Bilirubin Negative (Negative) Urine Urobilinogen Normal mg/dL (Negative) Urine Leukocyte Esterase Trace /uL (Negative) Urine RBC 21 /hpf (0 - 3) Urine Microscopic WBC 9 /HPF (0-3) Urine Squamous Epithelial Cells None seen /hpf (<5) Urine Bacteria None seen /hpf (None Seen) Urine Mucus Few (None Seen) Urine Glucose Normal mg/dL (Normal) Prothrombin Time 10.5 sec (9.3-11.8) Prothrombin Time INR 0.99 (0.9-1.15) Activated Partial Thromboplast Time 27.4 SEC (24.5-34.5) Other Laboratory Tests 06/04/25 04:40 Brief Hx & Hospital Course: see dictated note Condition at Discharge: Fair Final Diagnosis/Problems List renal stone Discharge Disposition: Home Discharge Instruct/Medications Diet: Cardiac 2g Na,low cholest Activity: No Restrictions, As Tolerated Follow Up/Referral: schedule appt with urology in 1wk Medications: resume home meds script to pharmacy Scheduled Hydrochlorothiazide (Hydrochlorothiazide), 1 CAP PO DAILY, (Reported) Losartan Potassium (Losartan Potassium), 50 MG PO DAILY, (Reported) Pantoprazole Sodium Sesquihydr (Protonix), 40 MG PO DAILY, (Reported) Tamsulosin Hcl (Tamsulosin Hcl), 1 CAP PO BID Scheduled PRN Cyclobenzaprine HCl (Cyclobenzaprine Hydrochlo), 10 MG PO TIDP PRN, (Reported) Miscellaneous Medications Belladonna Alkaloids-Phenobarb (), (Reported) Discontinued Medications Cyclobenzaprine Hcl (Cyclobenzaprine Hcl), 10 MG PO DAILY, (Reported) Metoclopramide Hcl (Reglan), 10 MG PO BID PRN Discharge Statement: "Patient was advised to return to the ER or call 911 if any headaches, dizziness, shortness of breath, chest pain, abdominal pain, bleeding, fevers, or worsening of medical condition. Patient was counseled about treatment plan, medications, possible side effects, patientverbalized understanding. All questions were answered to the best of my ability. This discharge took greater then 30 minutes in planning, reviewing documentation, counseling the patient, and discussing with other team members." ASSESSMENT ASSESSMENT Assessment renal stone Date of Service: Jun 04, 2025 Billing Provider: HOLLAND BARRIOS MD Common Visit Codes: 47541-YHL/OBS DISCH DAY >30min HOLLAND BARRIOS MD Jun 04, 2025 11:50
--- NOTE | 2025-06-04 12:09 | DVHDS ---
DATE OF DISCHARGE: 06/04/2025 HISTORY OF PRESENT ILLNESS: The patient is a 50-year-old gentleman who was admitted with complaints of right flank pain and has a history of hypertension, chronic pain, asthma, and GERD. HOSPITAL COURSE: The patient had a CT of abdomen and pelvis that showed evidence of hydronephrosis with 5 mm proximal obstructive stone in the right ureteral calculus. He was seen in Urology consult by Dr. Dougherty. The patient underwent lithotripsy for 8 mm stone along with the stent placement. The patient's white count was elevated at 16,000 that improved to 9000 at the time of discharge. His renal function is normal. He will now be discharged home to resume his home medications and follow up with Dr. Dougherty in the next two weeks to remove the ureteral stent. FINAL DIAGNOSES: * Right renal stone with hydronephrosis status post lithotripsy and stent placement. * Hypertension. * GERD. * Tobacco abuse. * SIRS, likely secondary to renal stone. * Chronic pain. Time spent in discharge planning and review of plan with the patient and nursing was 38 minutes. MD MADELEINE Wiley/GAURAV TID: [id number] RECEIPT: [id number]
[2025-06-04 13:00] VITALS: BP 136/90; PULSE 75; RESP 20; TEMP 99.2; O2SAT 94
== END 2025-06-04 16:59 | disposition home or self-care (01) | DRG 463 ==
LOC: EDBD 05:17 → ER 05:17 → OVERFLOW 09:40 → WEST WING 23:28
PROVIDERS: ADMIT Internal Medicine; ATTEND Internal Medicine
PROC: 0TF6XZZ Fragmentation in Right Ureter, External Approach (ICD-10-PCS; 2025-06-01)
PROC: 0T768DZ Dilation of Right Ureter with Intraluminal Device, Via Natural or Artificial Opening Endoscopic (ICD-10-PCS; principal; 2025-06-01 07:42)
DX: N13.6 Pyonephrosis (principal); F17.210 Nicotine dependence, cigarettes, uncomplicated; I10 Essential (primary) hypertension; J45.909 Unspecified asthma, uncomplicated; G89.29 Other chronic pain; K21.9 Gastro-esophageal reflux disease without esophagitis; Z88.0 Allergy status to penicillin; Z88.5 Allergy status to narcotic agent; Z91.0120 Allergy to eggs, unspecified; Z90.49 Acquired absence of other specified parts of digestive tract; Z87.442 Personal history of urinary calculi; Z83.3 Family history of diabetes mellitus; Z82.49 Family history of ischemic heart disease and other diseases of the circulatory system; Z71.6 Tobacco abuse counseling
CPT/HCPCS: 36415; 71045; 74018; 74176; 76775; 80048; 80053; 81001; 85025; 85610; 85730; 86850; 86900; 86901; 87086; 93005; 96361; 96374; 96375; G0378; J1100; J2250; J2405